=== PATIENT | female | born 1945 | race Caucasian/White ===

== ENCOUNTER → 2019-09-26 | Outpatient (CLI) | payer MEDICARE, OTHER ==
--- NOTE | 2019-09-26 09:32 | Diagnostic Imaging Report ---
Exam: KUB - 2 views Indication: Urinary tract infection Comparison: Renal ultrasound of the same day. Findings: Calcific density overlying the upper pole of the right kidney measures 6 mm and may represent a renal calculus versus intraluminal bowel content. 8 mm calcific density further superiorly appears to lie outside the distribution of the renal silhouette and may be a soft tissue calcification or alternatively a calcified gallstone. Nonobstructive bowel gas pattern. No free air. No acute osseous injury. Impression: 6 mm calcific density overlying the upper pole the right kidney may represent renal calculus versus intraluminal bowel content. Signed by: Analilia Mercer MD on 09/26/2019 9:29 AM
--- NOTE | 2019-09-26 09:50 | Diagnostic Imaging Report ---
EXAM: Renal Ultrasound INDICATION: ^URINARY TRACT INFECTION COMPARISON: None TECHNIQUE: Transverse and longitudinal images of the kidneys and bladder were obtained. FINDINGS: Right Kidney: Length: 9.5 cm Appearance: Normal echogenicity. Collecting system: No hydronephrosis Stones: None Cyst/Mass: None Left Kidney: Length: 9.6 cm Appearance: Normal echogenicity. Collecting system: No hydronephrosis Stones: None Cyst/Mass: None Bladder: No mass or calculi. Bilateral ureteral jets visualized. Prevoid volume estimate of 233 cc. Postvoid volume estimate of 39 cc. IMPRESSION: No renal calculi or hydronephrosis. Signed by: Analilia Mercer MD on 09/26/2019 9:46 AM
== END ==
LOC: US 07:48
PROVIDERS: ATTEND Urology
DX: N39.0 Urinary tract infection, site not specified (principal)
CPT/HCPCS: 74018; 76770; 76857

== ENCOUNTER → 2019-10-11 | Outpatient (CLI) | payer MEDICARE, OTHER ==
--- NOTE | 2019-10-11 09:57 | Diagnostic Imaging Report ---
EXAM: CT Abdomen and Pelvis WITHOUT intravenous contrast INDICATION: Renal calculus COMPARISON: KUB of 09/26/2019, renal ultrasound of 09/26/2019 TECHNIQUE: Abdomen and pelvis were scanned utilizing a multidetector helical scanner from the lung base to the pubic symphysis without administration of IV contrast. Coronal and sagittal reformations were obtained. IV CONTRAST: None ORAL CONTRAST: Water COMPLICATIONS: None RADIATION DOSE: Total DLP: 509 mGy*cm Dose modulation, iterative reconstruction, and/or weight based adjustment of the mA/kV was utilized to reduce the radiation dose to as low as reasonably achievable. FINDINGS: LOWER THORAX: Small sliding hiatal hernia. HEPATOBILIARY: No focal liver lesions. Unremarkable gallbladder. SPLEEN: No splenomegaly. PANCREAS: No focal masses or ductal dilatation. ADRENALS: No adrenal nodules. KIDNEYS/URETERS: 5 mm right upper pole renal calculus. No hydronephrosis or hydroureter. PELVIC ORGANS/BLADDER: Status post hysterectomy. PERITONEUM / RETROPERITONEUM: No free air or fluid. LYMPH NODES: No lymphadenopathy. VESSELS: Scattered atherosclerotic calcifications of the nonaneurysmal abdominal aorta and major branches. GI TRACT: No abnormal bowel thickening. No bowel obstruction. Normal appendix. BONES AND SOFT TISSUES: No acute osseous injury. No suspicious lytic or blastic lesions. IMPRESSION: 5 mm right upper pole nonobstructive renal calculus. No hydronephrosis or hydroureter. Signed by: Aanlilia Mercer MD on 10/11/2019 9:54 AM
== END ==
LOC: CT 08:28
PROVIDERS: ATTEND Urology
DX: N20.0 Calculus of kidney (principal)
CPT/HCPCS: 74176

== ENCOUNTER 2019-11-02 05:42 | Observation (INO) | payer MEDICARE, OTHER ==
[2019-10-28 09:42] LABS: BASOPHILS % 0.4 % (0.0-1.0); EOSINOPHILS # (AUTO) 0.1 (0.0-0.4); EOSINOPHILS % 1.2 % (0.0-6.0); HEMATOCRIT 38.1 % (34.2-44.1); HEMOGLOBIN 12.2 g/dL (12.0-16.0); LYMPHOCYTES # (AUTO) 3.5 (1.0-3.2); MEAN CORPUSCULAR HEMOGLOBIN 27.7 pg (28-32); MEAN CORPUSCULAR VOLUME 86.6 fL (81-99); MONOCYTES # (AUTO) 1.2 (0.2-0.8); MONOCYTES % 10.5 % (4.4-11.3); NEUTROPHILS # (AUTO) 6.4 (2.1-6.9); NEUTROPHILS % 56.4 % (38.7-80.0); PLATELET COUNT 238 x10e3/uL (140-360); RED CELL DISTRIBUTION WIDTH 15.3 % (11.7-14.4)
--- NOTE | 2019-10-28 10:32 | Diagnostic Imaging Report ---
EXAMINATION: CHEST 2 VIEWS INDICATION: Pre-operative COMPARISON: None FINDINGS: LINES/TUBES:None LUNGS:The lungs are well-inflated. No focal consolidation or pulmonary edema. PLEURA:No pleural effusion or pneumothorax. MEDIASTINUM:The cardiomediastinal silhouette appears normal in size and shape. BONES/SOFT TISSUES:No acute osseous injury. ABDOMEN:No free air under the diaphragm. IMPRESSION: No focal pneumonia or pulmonary edema. Signed by: Analilia Mercer MD on 10/28/2019 10:29 AM
[~2019-11-02] VITALS: Ht 154.9 cm; Wt 80.7 kg
[~2019-11-02 05:42] MED LIST: AMLODIPINE BESY10 MG PO; ARIMIDEX1 MG PO; CALTRATE 600 +1 EAC1 PO; CENTRUM SILVER1 EAC4 PO; CLONIDINE HCL0.1 MG PO; LISINOPRIL10 MG PO; ODOR FREE GARL100 MG PO; PREVAGEN PO; SIMVASTATIN20 MG PO; SYNTHROID88 MCG PO; VISION ESSENTIALS PO; VITAMIN D310 MCG PO; [UNRECOGNIZED DRUG - OTHER] PO
[2019-11-02] MEDS ORDERED: GENTAMICIN 80MG/NS 100 ML 200 ML IV ONE (06:51)
[2019-11-02] MEDS ORDERED: CLINDAMYCIN 300MG 50 ML IV ONE (06:51)
[2019-11-02] MEDS ORDERED: PIPER-TAZ 3.375 GM 50 ML ONE (06:51)
[2019-11-02] MEDS ORDERED: SILVER SULFADIAZINE 50GM CREAM ONE (07:46)
[2019-11-02] MEDS ORDERED: BUPIVACAINE 0.25%/EPI 30ML SDV INJ ONE (07:46)
[2019-11-02] MEDS ORDERED: INDIGOTINDISULFONATE SODIUM 8 MG/ML AMP IJ ONE (07:47)
[2019-11-02] MEDS ORDERED: IOPAMIDOL 300MG/ML 50ML INFUS..BTL IV ONE (07:48)
[2019-11-02 08:14] LABS: ANION GAP 12.8 mmol/L (8-16); BLOOD UREA NITROGEN 21 mg/dL (7-26); BUN/CREATININE RATIO 24 (6-25); CALCIUM 9.3 mg/dL (8.4-10.2); CARBON DIOXIDE 19 mmol/L (22-29); CHLORIDE 113 mmol/L (98-107); CREATININE, SERUM 0.86 mg/dL (0.57-1.11); EST GLOMERULAR FILTRATION RATE > 60 ML/MIN (60-); GLUCOSE 94 mg/dL (74-118); POTASSIUM 3.8 mmol/L (3.5-5.1); SODIUM 141 mmol/L (136-145)
[2019-11-02] MEDS ORDERED: BACITRACIN 50,000 UNIT VIAL ONE (08:18)
[2019-11-02] MEDS ORDERED: B&O 60MG R/S 60 MG SUPP PR ONE (08:18)
[2019-11-02] MEDS ORDERED: FENTANYL CITRATE/PF 100MCG/2 ML INJ ONE (10:55)
[2019-11-02] MEDS ORDERED: ONDANSETRON HCL INJ 2MG/ML 2ML 2 MG/ML VIAL ONE ×2 (11:08→14:02)
[2019-11-02] MEDS ORDERED: MEPERIDINE HCL INJ 25 MG/ML VIAL ONE ×2 (11:08→12:00)
[2019-11-02] MEDS ORDERED: DIPHENHYDRAMINE HCL 25 MG CAP PO PRN (11:30)
[2019-11-02] MEDS ORDERED: NALOXONE HCL INJ 0.4 MG/ML AMP IV PRN (11:30)
[2019-11-02] MEDS ORDERED: TRAMADOL HCL 50 MG TAB PO PRN (11:30)
[2019-11-02] MEDS ORDERED: ONDANSETRON HCL INJ 2MG/ML 2ML 2 MG/ML VIAL IV PRN (11:30)
[2019-11-02] MEDS ORDERED: MORPHINE SULFATE 1 MG/ML 30ML PCA IV PRN (11:30)
--- OUTSIDE RECORDS SUMMARY | 2019-11-02 12:19 | XMS REPORT | Summary of Care ---
Author Author [facility] Organization [facility] Address Unknown Phone Unavailable Encounter TERRANCE Emanuel(KEANU) [id number] Date(s): 08/29/15 - 08/29/15 [facility] [address] [place] [address]- Discharge Disposition: Home Attending Physician: Adrian Andre MD Referring Physician: Adrian Andre MD Vital Signs 1 2 3 Most recent to oldest [Reference Range]: 157.48 cm (08/22/15 11:06 AM) Height 97.9 DegF (08/22/15 11:43 AM) Temperature Oral [96.4-99.1 DegF] 133/54 mmHg (08/29/15 4:30 PM) 143/64 mmHg *HI* (08/29/15 3:45 PM) 129/64 mmHg (08/29/15 3:30 PM) Blood Pressure [90-140/60-90 mmHg] 18 BRMIN (08/29/15 4:30 PM) 18 BRMIN (08/29/15 3:45 PM) 11 BRMIN *LOW* (08/29/15 3:30 PM) Respiratory Rate [14-20 BRMIN] 75 bpm (08/22/15 11:43 AM) Peripheral Pulse Rate [60-100 bpm] 85.54 kg (08/22/15 11:06 AM) Weight 34.49 m2 (08/22/15 11:06 AM) Body Mass Index Problem List Condition Effective Dates Status Health Status Informan t Bronchitis(Confirmed Resolved ) Cataracts(Confirmed) Resolved Thyroid Active disorder(Confirmed) Heartburn(Confirmed) Active High Active cholesterol(Confirme d) Hyperlipidemia(Confi Active rmed) Hypertension(Confirm Active ed) High blood Active pressure(Confirmed) Hypothyroidism(Confi Active rmed) Obesity(Confirmed) Active Pneumonia(Confirmed) Resolved SOB (shortness of Active breath) on exertion(Confirmed) Allergies, Adverse Reactions, Alerts Substance Reaction Severity Status codeine VERTIGO Active Vomiting, NOS Levaquin Joint and Muscle Aches Active Medications ANES fentaNYL 25 microgram, Route: IVP, Q5Min, Dosing Weight 85.54, kg, PRN Pain Score 4-6, St art date: 08/29/15 14:47:00 CDT, Duration: 4 doses or times, Stop date: Limited # of times Start Date: 08/29/15 Stop Date: 08/29/15 Status: Discontinued ANES fentaNYL 50 microgram, Route: IVP, Q5Min, Dosing Weight 85.54, kg, PRN Pain Score 7-10, S tart date: 08/29/15 14:47:00 CDT, Duration: 2 doses or times, Stop date: Limited # of times Start Date: 08/29/15 Stop Date: 08/29/15 Status: Discontinued ANES flumazenil 0.2 mg, Route: IVP, PRN, Dosing Weight 85.54, kg, PRN Benzodiazepine Reversal, I nitial dose, Start date: 08/29/15 14:47:00 CDT, Duration: 30 day, Stop date: 04/14 14:46:00 CDT Start Date: 08/29/15 Stop Date: 08/29/15 Status: Discontinued ANES naloxone 0.4 mg, Route: IVP, Q2MIN, Dosing Weight 85.54, kg, PRN Narcotic Reversal, Start date: 08/29/15 14:47:00 CDT, Duration: 8 doses or times, Stop date: Limited # of times Start Date: 08/29/15 Stop Date: 08/29/15 Status: Discontinued ANES ondansetron 4 mg, Route: IVP, ONCE, Dosing Weight 85.54, kg, PRN Nausea & Vomiting, Start date: 08/29/15 14:47:00 CDT Start Date: 08/29/15 Stop Date: 08/29/15 Status: Discontinued ceFAZolin 2 gm, 100 mL, Route: IVPB, Drug form: INJ, ONCE, Dosing Weight 85.455, kg, Start date: 08/22/15 11:32:00 CDT, Stop date: 08/22/15 11:32:00 CDT Notes: Same as: Ancef Start Date: 08/22/15 Stop Date: 08/22/15 Status: Ordered ceFAZolin (ANES) Route: IV, Drug form: INJ, ONCE, Stop date: 08/29/15 14:20:00 CDT Start Date: 08/29/15 Stop Date: 08/29/15 Status: Completed famotidine (ANES) Route: IV, Drug form: INJ, ONCE, Stop date: 08/29/15 14:15:00 CDT Start Date: 08/29/15 Stop Date: 08/29/15 Status: Completed fentaNYL (ANES) Route: IV, Drug form: INJ, ONCE, Stop date: 08/29/15 14:35:00 CDT Start Date: 08/29/15 Stop Date: 08/29/15 Status: Completed Lactated Ringers Injection IV (ANES) (ANES) Route: IV, Total Volume: 1,000, Start date: 08/29/15 13:24:00 CDT, Stop date: 14:24:00 CDT Start Date: 08/29/15 Stop Date: 08/29/15 Status: Completed Lactated Ringers Injection IV 1000 mL 1,000 mL, Rate: 25 ml/hr, Infuse over: 40 hr, Route: IV, Dosing Weight 85.54 kg, Total Volume: 1,000, Start date: 08/29/15 10:31:00 CDT, Duration: 30 day, Stop date: 09/28/15 10:30:00 CDT Start Date: 08/29/15 Stop Date: 08/29/15 Status: Discontinued lidocaine (ANES) Route: IV, Drug form: INJ, ONCE, Stop date: 08/29/15 14:20:00 CDT Start Date: 08/29/15 Stop Date: 08/29/15 Status: Completed midazolam (ANES) Route: IV, Drug form: SOLN, ONCE, Stop date: 08/29/15 14:15:00 CDT Start Date: 08/29/15 Stop Date: 08/29/15 Status: Completed ondansetron (ANES) Route: IV, Drug form: INJ, ONCE, Stop date: 08/29/15 14:20:00 CDT Start Date: 08/29/15 Stop Date: 08/29/15 Status: Completed oxyCODONE 5 mg immediate release 5 mg, Route: PO, Drug form: TAB, ONCE, Dosing Weight 85.54, kg, PRN Pain Score 4 -6, Start date: 08/29/15 15:57:00 CDT, Stop date: 09/28/15 15:56:00 CDT Start Date: 08/29/15 Stop Date: 08/29/15 Status: Completed phenylephrine (ANES) Route: IV, Drug form: INJ, ONCE, Stop date: 08/29/15 14:40:00 CDT Start Date: 08/29/15 Stop Date: 08/29/15 Status: Completed propofol (ANES) Route: IV, Drug form: INJ, ONCE, Stop date: 08/29/15 14:20:00 CDT Start Date: 08/29/15 Stop Date: 08/29/15 Status: Completed tramadol 50 mg oral tablet 50 mg = 1 tab, PO, Q8H, PRN Pain, X 7 day, # 21 tab, 0 Refill(s) Start Date: 08/29/15 Stop Date: 09/05/15 Status: Ordered Results ELECTROLYTES Most recent to 1 oldest [Reference Range]: Sodium Lvl [135-145 143 mEq/L mEq/L] (08/22/15 11:42 AM) Potassium Lvl 3.8 mEq/L [3.5-5.1 mEq/L] (08/22/15 11:42 AM) Chloride Lvl [95-109 106 mEq/L mEq/L] (08/22/15 11:42 AM) CO2 [24-32 mEq/L] 26 mEq/L (08/22/15 11:42 AM) AGAP [10.0-20.0 14.8 mEq/L mEq/L] (08/22/15 11:42 AM) HEMATOLOGY Most recent to 1 oldest [Reference Range]: WBC [3.7-10.4 K/CMM] 9.0 K/CMM (08/22/15 11:42 AM) RBC [4.20-5.40 4.75 M/CMM M/CMM] (08/22/15 11:42 AM) Hgb [12.0-16.0 g/dL] 13.5 g/dL (08/22/15:42 AM) Hct [36.0-48.0 %] 41.3 % (08/22/15:42 AM) MCV [80.0-98.0 fL] 86.9 fL (08/22/15:42 AM) MCH [27.0-31.0 pg] 28.3 pg (08/22/15:42 AM) MCHC [32.0-36.0 32.6 g/dL g/dL] (08/22/15:42 AM) RDW [11.5-14.5 %] 15.3 % *HI* (08/22/1542 AM) Platelet [133-450 235 K/CMM K/CMM] (08/22/15:42 AM) MPV [7.4-10.4 fL] 8.5 fL (08/22/15 11:42 AM) Segs [45.0-75.0 %] 57.1 % (08/22/15 11:42 AM) Lymphocytes 30.1 % [20.0-40.0 %] (08/22/15 11:42 AM) Monocytes [2.0-12.0 10.1 % %] (08/22/15 11:42 AM) Eosinophils [0.0-4.0 1.7 % %] (08/22/15 11:42 AM) Basophils [0.0-1.0 1.0 % %] (08/22/15 11:42 AM) Segs-Bands # 5.2 K/CMM [1.5-8.1 K/CMM] (08/22/15 11:42 AM) Lymphocytes # 2.7 K/CMM [1.0-5.5 K/CMM] (08/22/15 11:42 AM) Monocytes # [0.0-0.8 0.9 K/CMM K/CMM] *HI* (08/22/15 11:42 AM) Eosinophils # 0.1 K/CMM [0.0-0.5 K/CMM] (08/22/15 11:42 AM) Basophils # [0.0-0.2 0.1 K/CMM K/CMM] (08/22/15 11:42 AM) Immunizations No data available for this section Procedures Procedure Date Related Diagnosis Body Site Knee replacement 2014 Hysterectomy Lower jaw operation Lumpectomy of breast Social History Social History Type Response Substance Abuse Use: None. Alcohol Current, Type Wine. Freque ncy: 1-2 times per month. Smoking Status Never smoker; Exposure to T obacco Smoke None; Cigarette Smoking Last 365 Days No; Reg Smoking Cessation Counseli ng No Assessment and Plan No data available for this section
--- OUTSIDE RECORDS SUMMARY | 2019-11-02 12:19 | XMS REPORT | Summary of Care ---
Author Author [facility] Organization [facility] Address Unknown Phone Unavailable Care Team Providers Care [employer] Advisor Name Role Phone Kelly Griffin PCP Encounter [facility] Adelfo(FIN) [id number] Date(s): 09/27/19 - 09/27/19 [facility] [address] [place] [address]- Discharge Disposition: Home or Self Care Attending Physician: Marce Montano DO Referring Physician: Marce Montano DO Vital Signs No data available for this section Problem List Condition Effective Dates Status Health Status Informan t Bronchitis(Confirmed Resolved ) Cataracts(Confirmed) Resolved Thyroid Active disorder(Confirmed) Heartburn(Confirmed) Active High Active cholesterol(Confirme d) Hyperlipidemia(Confi Active rmed) Hypertension(Confirm Active ed) High blood Active pressure(Confirmed) Hypothyroidism(Confi Active rmed) Obesity(Confirmed) Active Pneumonia(Confirmed) Resolved SOB (shortness of Active breath) on exertion(Confirmed) Allergies, Adverse Reactions, Alerts Substance Reaction Severity Status codeine Vomiting, NOS Active VERTIGO Levaquin Joint and Muscle Aches Active Medications No data available for this section Results No data available for this section Immunizations No data available for this section Procedures Procedure Date Related Diagnosis Body Site Status Partial mastectomy right 08/29/15 Completed Knee replacement 2014 Completed Hysterectomy Completed Lower jaw operation Completed Lumpectomy of breast Completed Social History Social History Type Response Alcohol Current, Type Wine. Freque ncy: 1-2 times per month. Substance Abuse Use: None. Smoking Status Never smoker; Exposure to T obacco Smoke None; Cigarette Smoking Last 365 Days No; Reg Smoking Cessation Counseli ng No entered on: 09/06/15 Assessment and Plan No data available for this section
--- OUTSIDE RECORDS SUMMARY | 2019-11-02 12:19 | XMS REPORT | Continuity of Care Document ---
Author Author [facility] t Organization [facility] Address [address] [place] [address] 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 0 Active 12/14/2018 [facility] Diagnosis Active 2018-12-14 00:00:00 2018-12-28 08:36:00 Alo Pierre DIAGNOSTIC MAMMO KELLEY -- US BREAST KELLEY DIAGNOSTIC MAMMO KELLEY -- US BREAST KELLEY Active 04/22/2018 [facility] Diagnosis Ac tive 2018-04-22 00:00:00 2018-06-21 07:09:00 shawn Pierre SCREENING MAMM SCRE ENING MAMM Active 05/28/2017 [facility] Diagnosis Active 2017-05-28 00:00:00 2017-06-19 08:31:00 Alo Pierre DX: M81.0=AGE-RELATED OSTEOPOROSIS WITHO DX: M81.0=AGE- RELATED OSTEOPOROSIS WITHO Active 11/20/2016 [facility] Diagnosis Ac tive 2016-11-20 00:00:00 2016-12-22 08:17:00 M shawn Pierre D05.00 D05. 00 Active 03/27/2016 [facility] Diagnosis Active 2016-03-27 00:00:00 2016-04-07 13:18:00 Alo Pierre M85.9 - DISORDER OF BONE DENSITY AND S M85.9 - DISORDER OF BONE DENSITY AND S Active 09/26/2015 [facility] [place] [facility] Active 2015-09-26 00:01:00 2015-12-21 16:23:00 Alo Pierre UNK UNK Active 08/14/2015 [facility] Diagnosis Active 2015-08-14 00:00:00 2015-08-29 08:27:00 William Pierre 2 AREA MASS 2 AR EA MASS Active 07/23/2015 [facility] Active 2015-07-23 00:00:00 2015-08-01 13:19:00 Alo Pierre ABNORMAL RIGHT MAMMO ABNO RMAL RIGHT MAMMO Active 07/10/2015 [facility] Active 2015-07-10 00:00:00 2015-07-23 07:55:00 Alo Pierre Z12.31 - ENCNTR SCREEN MAMMOGRAM FOR MA Z12.31 - ENCNTR SCREEN MAMMOGRAM FOR MA Active 07/03/2015 [facility] [place] Diagnosis Active 2015-07-03 00:01:00 2015-07-04 09:51:00 Alo Pierre Bronchitis (disorder) Bron chitis (disorder) [facility]olved [facility]29[facility] Resolved 2019-09-29 23:15:05 Alo Pierre Bilateral cataracts (disorder) Bilateral cataracts (disorder) Resolved Problem 09/29/2019 [facility] Problem Resolved 2019-09-29 23:15:05 Breanna Pierre Pneumonia (disorder) Pneu monia (disorder) Resolved Problem 09/29/2019 [facility] Problem Resolved 2019-09-29 23:15:05 Alo Pierre Disease of thyroid gland (disorder) Disease of thyroid gland (disorder) Active Problem 09/29/2019 [facility] Problem Active 2019-09-29 23:15:05 Alo Pierre Heartburn (finding) Hear tburn (finding) Active Problem 09/29/2019 [facility] Problem Active 2019-09-29 23:15:05 Alo Pierre Hypercholesterolemia (disorder) Hypercholesterolemia (disorder) Active Problem 09/29/2019 [facility] Problem Active 2019-09-29 23:15:05 Breanna Pierre Hyperlipidemia (disorder) Hype rlipidemia (disorder) Active [facility]29[facility] Active 2019-09-29 23:15:05 Alo Pierre Hypertensive disorder, systemic arterial (disorder) Hypertensive disorder, systemic arterial (disorder) [facility] 2019-09-29 23:15:05 Alo Pierre Hypothyroidism (disorder) Hypo thyroidism (disorder) [facility]29[facility] Active 2019-09-29 23:15:05 Alo Pierre Obesity (disorder) Obes ity (disorder) [facility] 2019-09-29 23:15:05 Alo Pierre Dyspnea on exertion (finding) Dyspnea on exertion (finding) Active [facility]29[facility] Active 2019-09-29 23:15:05 Breanna Pierre INCONCLUSIVE MAMMOGRAM INCO NCLUSIVE MAMMOGRAM Active [facility] Diagnosis Active 2015-07-23 07:55:00 William Pierre UNSPECIFIED LUMP IN BREAST UNS PECIFIED LUMP IN BREAST Active [facility] Diagnosis Active 2015-08-29 08:27:00 Alo Pierre LOBULAR CARCINOMA IN SITU OF UNSPECIFIED LOBULAR CARCINOMA IN SITU OF UNSPECIFIED Active [facility] Diagnosis Active 2019-09-27 08:17:00 Alo Pierre AGE-RELATED OSTEOPOROSIS W/O CURRENT PAT AGE-RELATED OSTEOPOROSIS W/O CURRENT PAT Active [facility] Diagnosis Active 2018-12-28 08:36:00 Alo Pierre ENCNTR SCREEN MAMMOGRAM FOR MALIGNANT NE ENCNTR SCREEN MAMMOGRAM FOR MALIGNANT NE Active [facility] Diagnosis Active 2017-06-19 08:31:00 Alo Pierre OTHER SPECIFIED DISORDERS OF BREAST OTHER SPECIFIED DISORDERS OF BREAST Active [facility] Diagnosis Active 2019-09-27 08:17:00 Alo Pierre Encounter for screening mammogram for malignant neopla sm of breast Encounter for screening mammogram for malignant neoplasm of breast 06/26/2017 09/25/2017 [facility] Problem 2017-06-26 03:21:55 2017 11:47:47 2017-09-25 11:47:47 Alo Pierre Allergies, Adverse Reactions, Alerts Allergy Name Allergy Type Status Severity Reaction(s) Onset Date Inacti ve Date Treating Clinician Comments Source codeine codeine Active [facility] Levaquin Levaquin Active [facility] [place] Social History Social Habit Start Date Stop Date Quantity Comments Source Social History 2015-08-14 16:05:59 2015-08-14 16:05:59 [facility] Medications Ordered Medication Name Filled Medication Name Start Date Stop Da te Current Medication? Ordering Clinician Indication Dosage Frequency Signature (SIG) Comments Components Source Oxycodone Hydrochloride 5 MG Oral Tablet 2015-08-29 20:57:00 No 5 mg, Route: PO, Drug form: TAB, ONCE, Dosing Weight 85.54, kg, PRN Pain Score 4- 6, Start date: 08/29/15 15:57:00 CDT, Stop date: 09/28/15 15:56:00 CDT [facility] Fentanyl 2015-08-29 19:47:00 No 25 microgram, Route: IVP, Q5Min, Dosing Weight 85.54, kg, PRN Pain Score 4-6, Start date: 08/29/15 14:47:00 CDT, Duration: 4 doses or times, Stop date: Limited # of times [facility] Ondansetron 2015-08-29 19:47:00 No 4 mg, Route: IVP, ONCE, Dosing Weight 85.54, kg, PRN Nausea & Vomiting, Start date: 08/29/15 14:47:00 CDT [facility] Flumazenil 2015-08-29 19:47:00 No 0.2 mg, Route: IVP, PRN, Dosing Weight 85.54, kg, PRN Benzodiazepine Reversal, Initial dose, Start date: 08/29/15 14:47:00 CDT, Duration: 30 day, Stop date: 09/28/15 14:46:00 CDT [facility] Naloxone 2015-08-29 19:47:00 No 0.4 mg, Route: IVP, Q2MIN, Dosing Weight 85.54, kg, PRN Narcotic Reversal, Start date: 08/29/15 14:47:00 CDT, Duration: 8 doses or times, Stop date: Limited # of times [facility] tramadol hydrochloride 50 MG Oral Tablet 2015-08-29 19:42:00 Yes 50 mg = 1 tab, PO, Q8H, PRN Pain, X 7 day, # 21 tab, 0 Refill(s) [facility] phenylephrine ([facility]) 2015-08-29 19:40:00 No Route: IV, Drug form: INJ, ONCE, Stop date: 08/29/15 14:40:00 CDT [facility] fentaNYL ([facility]) 2015-08-29 19:35:00 No Route: IV, Drug form: INJ, ONCE, Stop date: 08/29/15 14:35:00 CDT [facility] propofol ([facility]) 2015-08-29 19:20:00 No Route: IV, Drug form: INJ, ONCE, Stop date: 08/29/15 14:20:00 CDT [facility] ondansetron ([facility]) 2015-08-29 19:20:00 No Route: IV, Drug form: INJ, ONCE, Stop date: 08/29/15 14:20:00 CDT [facility] ceFAZolin ([facility]) 2015-08-29 19:20:00 No Route: IV, Drug form: INJ, ONCE, Stop date: 08/29/15 14:20:00 CDT [facility] lidocaine ([facility]) 2015-08-29 19:20:00 No Route: IV, Drug form: INJ, ONCE, Stop date: 08/29/15 14:20:00 CDT [facility] famotidine ([facility]) 2015-08-29 19:15:00 No Route: IV, Drug form: INJ, ONCE, Stop date: 08/29/15 14:15:00 CDT [facility] midazolam ([facility]) 2015-08-29 19:15:00 No Route: IV, Drug form: SOLN, ONCE, Stop date: 08/29/15 14:15:00 CDT [facility] Lactated Ringers Injection IV ([facility]) ([facility]) 2015-08-29 18:24:00 No Route: IV, Total Volume: 1,000, Start date: 08/29/15 13:24:00 CDT, Stop date: 08/29/15 14:24:00 CDT [facility] Calcium Chloride 0.0014 MEQ/ML / Potassi um Chloride 0.004 MEQ/ML / Sodium Chloride 0.103 MEQ/ML / Sodium Lactate 0.028 MEQ/ML Injectable Solution 2015-08-29 15:31:00 No 1,000 mL, Rate: 25 ml/hr, Infuse over: 40 hr, Route: IV, Dosing Weight 85.54 kg, Total Volume: 1,000, Start date: 08/29/15 10:31:00 CDT, Duration: 30 day, Stop date: 09/28/15 10:30:00 CDT [facility] Cefazolin 2015-08-22 16:32:00 Yes Notes: Marty bey as: Ancef [facility] Vital Signs Vital Name Observation Time Observation Value Comments Source Systolic (mm Hg) 2015-08-29 21:30:00 [facility] [place] Diastolic (mm Hg) 2015-08-29 21:30:00 [facility] [place] Respitory Rate 2015-08-29 21:30:00 [facility] [place] Systolic (mm Hg) 2015-08-29 20:45:00 [facility] [place] Diastolic (mm Hg) 2015-08-29 20:45:00 [facility] [place] Respitory Rate 2015-08-29 20:45:00 [facility] [place] Systolic (mm Hg) 2015-08-29 20:30:00 [facility] [place] Diastolic (mm Hg) 2015-08-29 20:30:00 [facility] [place] Respitory Rate 2015-08-29 20:30:00 [facility] al [place] Heart Rate 2015-08-22 16:43:00 [facility] Temperature Oral (F) 2015-08-22 16:43:00 97.9 F [facility] Height 2015-08-22 16:06:00 157.48 cm [facility] BMI Calculated 2015-08-22 16:06:00 [facility] al [place] Weight 2015-08-22 16:06:00 [facility] Procedures Procedure Date / Time Performed Performing Clinician Narcisa bey Partial mastectomy right 2015-08-29 05:00:00 [facility] [place] Knee replacement 2014-03-30 00:00:00 [facility] Hysterectomy [facility] Lower jaw operation [facility] Lumpectomy of breast [facility] Encounters Start Date/Time End Date/Time Encounter Type Admission Type [facility] Care Department Encounter ID Source 2019-09-27 07:59:00 2019-09-27 23:59:00 Outpatient HashMarce Erwin [facility] [id number] 2019-09-27 07:59:00 2019-09-27 07:59:00 Outpatient [facility] 2018-12-28 07:23:00 2018-12-28 23:59:00 Outpatient HashMarce Erwin MHSE [facility]SE [id number] 2018-12-28 07:23:00 2018-12-28 07:23:00 Outpatient [facility] 2018-06-21 06:57:00 2018-06-21 23:59:00 Outpatient Marce Curtis MHSE MHSE [id number] 2017-06-19 08:30:00 2017-06-19 23:59:00 Outpatient Marce Curtis MH[facility] [id number] 2016-12-22 08:17:00 2016-12-22 23:59:00 Outpatient Marce Curtis [facility] [id number] 2016-04-07 13:17:00 2016-04-07 23:59:00 Outpatient Marce Curtis [facility] [id number] 2015-11-20 10:55:00 2015-11-20 23:59:00 Outpatient Marce Andrew [id number] 2015-08-29 08:27:00 2015-08-29 16:40:00 Outpatient Adrian Andre [facility]SE MHSE [id number] 2015-08-01 12:39:00 2015-08-01 23:59:00 Outpatient Jarret Tuttle MH[facility] [id number] 2015-07-23 07:45:00 2015-07-23 23:59:00 Outpatient Jarret Tuttle MH[facility] [id number] 2015-07-04 09:41:00 2015-07-04 23:59:00 Outpatient Jarret Tuttle [id number] 2013-11-14 07:27:00 2013-11-14 23:59:00 Outpatient Jarret Tuttle [id number] Results Test Description Test Time Test Comments Results Result Comments Source CHEST 2 VIEWS 2019-10-28 10:29:00 [place] [address] Patient Name: JOSELITO BARRETO MR #: [id number] : 1945 Age/Sex: 74/F Req #: [id number] Adm Physician: Ordered by: LANCE WALLACE MD Report #: [id number] Location: OR Room/Bed: Procedure: [id number] DX/CHEST 2 VIEWS Exam Date: Exam Time: REPORT STATUS: Signed EXAMINATION: CHEST 2 VIEWS INDICATION: Pre- operative COMPARISON: None FINDINGS: LINES/TUBES:None LUNGS:The lungs are well-inflated. No focal consolidation or pulmonary edema. PLEURA:No pleural effusion or pneumothorax. MEDIASTINUM:The cardiome diastinal silhouette appears normal in size and shape. BONES/SOFT TISSUES:No acute osseous injury. ABDOMEN:No free air under the diaphragm. IMPRESSION: No focal pneumonia or pulmonary edema. Signed by: Adore Mercer MD on 10/28/2019 10:29 AM Dictated By: ADORE MERCER MD 1029 Transcribed By: RICHARDSON on 10/28/19 1029 COPY TO: LANCE WALLACE MD CT ABDOMEN/PELVIS WO 2019-10-11 09:47:00 [address] [place], [place] [address] Patient Name: JOSELITO BARRETO MR #: [id number] : 1945 [facility]: 74[id number] Req #: [id number] [facility] Physician: Ordered by: LANCE WALLACE MD Report #: [id number] Location: CT Room/Bed: Procedure: [id number] CT/CT ABDOMEN/PELVIS WO Exam Date: 10/11/19 Exam Time: 0900 REPORT STATUS: Signed EXAM: CT Abdomen and Pelvis WITHOUT intravenous contrast INDICATION: Renal calculus COMPARISON: KUB of 09/26/2019, renal ultrasound of 09/26/2019 TECHNIQUE: Abdomen and pelvis were scanned utilizing a multidetector helical scanner from the lung base to the pubic symphysis without administration of IV contrast. Coronal and sagittal reformations were obtained. IV CONTRAST: None ORAL CONTRAST: Water COMPLICATIONS: None RADIATION DOSE: Total DLP: 509 mGy*cm Dose modulation, iterative reconstruction, and/or weight based adjustment of the mA/kV was utilized to reduce the radiation dose to as low as reasonably achievable. FINDINGS: LOWER THORAX: Small sliding hiatal hernia. HEPATOBILIARY: No focal liver lesions. Unremarkable gallbladder. SPLEEN: No splenomegaly. PANCREAS: No focal masses or ductal dilatation. ADRENALS: No adrenal nodules. KIDNEYS/URETERS: 5 mm right upper pole renal calculus. No hydronephrosis or hydroureter. PELVIC ORGANS/BLADDER: Status post hysterectomy. PERITONEUM / RETROPERITONEUM: No free air or fluid. LYMPH NODES: No lymphadenopathy. VESSELS: Scattered atherosclerotic calcifications of the nonaneurysmal abdominal aorta and major branches. GI TRACT: No abnormal bowel thickening. No bowel obstruction. Normal appendix. BONES AND SOFT TISSUES: No acute osseous injury. No suspicious lytic or blastic lesions. IMPRESSION: 5 mm right upper pole nonobstructive renal calculus. No hydronephrosis or hydroureter. Signed by: Adore Mercer MD on 10/11/2019 9:54 AM Dictated By: ADORE MERCER MD 3 Transcribed By: RICHARDSON on 10/11/19953 COPY TO: LANCE WALLACE MD RENAL RETROPERITONEAL COMP 2019-09-26 09:45:00 [place] [address] Patient Name: JOSELITO BARRETO MR #: [id number] : 1945 Age/Sex: 74/F Req #: [id number] Adm Physician: Ordered by: LANCE WALLACE MD Report #: [id number] Location: Room/Bed: Procedure: [id number] US/US RENAL RETROPERITONEAL COMP Exam Date: 09/26/19 Exam Time: 0810 REPORT STATUS: Signed EXAM: Renal Ultrasound INDICATION: URINARY TRACT INFECTION COMPARISON: None TECHNIQUE: Transverse and longitudinal images of the kidneys and bladder were obtained. FINDINGS: Right Kidney: Length: 9.5 cm Appearance: Normal echogenicity. Collecting system: No hydronephrosis Stones: None Cyst/Mass: None Left Kidney: Length: 9.6 cm Appearance: Normal echogenicity. Collecting system: No hydronephrosis Stones: None Cyst/Mass: None Bladder: No mass or calculi. Bilateral ureteral jets visualized. Prevoid volume estimate of 233 cc. Postvoid volume estimate of 39 cc. IMPRESSION: No renal calculi or hydronephrosis. Signed by: Adore Mercer MD on 09/26/2019 9:46 AM Dictated By: ADORE MERCER MD 5 Transcribed By: MARY JO Riddle on 09/26/19945 COPY TO: LANCE WALLACE MD US PELVIC (NON OB) MORALES OR F/U 2019-09-26 09:45:00 [place] [address] Patient Name: JOSELITO BARRETO MR #: [id number] : 1945 Age/Sex: 74/F Req #: [id number] Adm Physician: Ordered by: LANCE WALLACE MD Report #: [id number] Location: US Room/Bed: Procedure: [id number] US/US PELVIC (NON OB) MORALES OR F/U Exam Date: 09/26/19 Exam Time: 0810 REPORT STATUS: Signed EXAM: Renal Ultrasound INDICATION: URINARY TRACT INFECTION COMPARISON: None TECHNIQUE: Transverse and longitudinal images of the kidneys and bladder were obtained. FINDINGS: Right Kidney: Length: 9.5 cm Appearance: Normal echogenicity. Collecting system: No hydronephrosis Stones: None Cyst/Mass: None Left Kidney: Length: 9.6 cm Appearance: Normal echogenicity. Collecting system: No hydronephrosis Stones: None Cyst/Mass: None Bladder: No mass or calculi. Bilateral ureteral jets visualized. Prevoid volume estimate of 233 cc. Postvoid volume estimate of 39 cc. IMPRESSION: No renal calculi or hydronephrosis. Signed by: Adore Mercer MD on 09/26/2019 9:46 AM Dictated By: ADORE MERCER MD 5 Transcribed By: MARY JO Riddle on 09/26/19945 COPY TO: LANCE WALLACE MD ABDOMEN-1VIEW (KUB) 2019-09-26 09:27:00 [place] [address] Patient Name: JOSELITO BARRETO MR #: [id number] : 1945 Age/Sex: 74/F Req #: [id number] Adm Physician: Ordered by: LANCE WALLACE MD Report #: [id number] Location: US Room/Bed: Procedure: [id number] DX/ABDOMEN-1VIEW (KUB) Exam Date: 09/26/19 Exam Time: 0845 REPORT STATUS: Signed Exam: KUB - 2 views Indication: Urinary tract infection Comparison: Renal ultrasound of the same day. Findings: Calcific density overlying the upper pole of the right kidney measures 6 mm and may represent a renal calculus versus intraluminal bowel c ontent. 8 mm calcific density further superiorly appears to lie outside the distribution of the renal silhouette and may be a soft tissue calcification or alternatively a calcified gallstone. Nonobstructive bowel gas pattern. No free air. No acute osseous injury. Impression: 6 mm calcific density overlying the upper pole the right kidney may represent renal calculus versus intraluminal bowel content. Signed by: Adore Mercer MD on 09/26/2019 9:29 AM Dictated By: ADORE MERCER MD 8 Transcribed By: RICHARDSON on 09/26/19928 COPY TO: LANCE WALLACE MD ELECTROLYTES 2015-08-22 16:42:00 14.8 Mem [facility] [place] ELECTROLYTES 2015-08-22 16:42:00 26 Mem [facility] [place] ELECTROLYTES 2015-08-22 16:42:00 106 Mem [facility] [place] ELECTROLYTES 2015-08-22 16:42:00 3.8 Mem [facility] [place] ELECTROLYTES 2015-08-22 16:42:00 143 Mem orial [place] HEMATOLOGY 2015-08-22 16:42:00 15.3 Memor ial [place] HEMATOLOGY 2015-08-22 16:42:00 235 Memor ial [place] HEMATOLOGY 2015-08-22 16:42:00 8.5 Memor ial [place] HEMATOLOGY 2015-08-22 16:42:00 Test Item MCH (test code = MCH) 28.3 pg 27.0-31.0 [facility] FvebmvzKKHIHQINOH4213-06-48 16:42:0032.6[facility] 2015-08-22 16:42:004.75[facility] JypuibpWUPZTSEOQX6209-77-06 16:42:0086.9[facility] GfdimgoFFYXFGIHVF7628-81-33 16:42:0013.5[facility] VlvjmmjOAQHYAFSEI3292-18-79 16:42:009.0[facility] ZbsqszxCHFVAVOQBF6320-50-62 16:42:0041.3[facility] [place] HSXORMSXNS4709-65-26 16:42:001.7[facility] JzxbeduDGNBWVUUBZ7907-11-07 16:42:001.0 [facility] DdzyouxHWFOYMOAOE6844-71-00 16:42:005.2[facility] 2015-08-22 16:42:002.7[facility] UjpdhweMKPJYHNZMS0621-05-06 16:42:000.1[facility] SsgtkfyROYNHCPBIS0963-99-41 16:42:000.1[facility] UjhotssHJRTODSRDY4415-98-61 16:42:000.9[facility] MoaegseBMUFGIIECM5805-82-14 16:42:0057.1[facility] [place] WVQZHJKZQJ5296-01-25 16:42:0030.1[facility] BtvsbduXDYQVZQBNY3076-03-71 16:42:00 10.1[facility]
--- OUTSIDE RECORDS SUMMARY | 2019-11-02 12:19 | XMS REPORT | Summary of Care ---
Author Author [facility] Organization [facility] Address Unknown Phone Unavailable Encounter TERRANCE Emanuel(KEANU) [id number] Date(s): 04/07/16 - 04/07/16 [facility] [address] [place] [address]- [phone] Discharge Disposition: Home or Self Care Attending [...] Procedures Procedure Date Related Diagnosis Body Site Partial mastectomy right 08/29/15 Knee replacement 2015 Hysterectomy Lower jaw operation Lumpectomy of breast [...]
--- OUTSIDE RECORDS SUMMARY | 2019-11-02 12:19 | XMS REPORT | Continuity of Care Document ---
Author Author Alo Towi Kenney, PAULA Mcrae [employer] Address Unknown Phone Unavailable Care Team Providers Care Middleware Engineer Name Role Phone [employer] Unavailable Un available Problems Problem Status Onset Date Classification Date Reported Comments Source DX: D05.00=LOBULAR CARCINOMA IN SITU OF Active 09/08/2019 [facility] M81.0 Active 12/14/2018 [facility] DIAGNOSTIC MAMMO DESHAUN -- US BREAST DESHAUN Active 04/22/2018 [facility] Encounter for screening mammogram for ma lignant neoplasm of breast 06/26/2017 09/25/2017 [facility] SCREENING MAMM Active 05/28/2017 [facility] DX: M81.0=AGE-RELATED OSTEOPOROSIS WITHO Active 11/20/2016 [facility] D05.00 Active 03/27/2016 [facility] M85.9 - DISORDER OF BONE DENSITY AND S Active 09/26/2015 [facility] UNK Active 0 08/14/2015 [facility] 2 AREA MASS Active 07/23/2015 [facility] ABNORMAL RIGHT MAMMO Active 07/10/2015 [facility] Z12.31 - ENCNTR SCREEN MAMMOGRAM FOR MA Active 07/03/2015 KATI Wells Bronchitis (disorder) [facility]acts (disorder) [facility] Disease of thyroid gland (disorder) Active [facility] Heartburn (finding) Active Problem [facility]29[facility] Hypercholesterolemia (disorder) [facility] Hyperlipidemia (disorder) Acti ve Problem [facility] Hypertensive disorder, systemic arterial (disorder) [facility] (disorder) Acti ve Problem [facility] Obesity (disorder) Active Problem 09/29/2019 [facility]I Wells,[facility] Pneumonia (disorder) Resolved Problem 09/29/2019 [facility]ATI Wells,[facility] Dyspnea on exertion (finding) Active Problem 04/2019 KATI Wells,[facility] INCONCLUSIVE MAMMOGRAM Active [facility] UNSPECIFIED LUMP IN BREAST Act janeth [facility] LOBULAR CARCINOMA IN SITU OF UNSPECIFIED Active [facility] AGE-RELATED OSTEOPOROSIS W/O CURRENT PAT Active [facility] ENCNTR SCREEN MAMMOGRAM FOR MALIGNANT NE Active [facility] OTHER SPECIFIED DISORDERS OF BREAST Active [facility] Medications Medication Details Route Status Patient Instructions Ordering Provider Order Date Source Oxycodone Hydrochloride 5 MG Oral Tablet 5 mg, Route: PO, Drug form: TAB, ONCE, Dosing Weight 85.54, kg, PRN Pain Score 4-6, Start date: 08/29/15 15:57:00 CDT, Stop date: 09/28/15 15:56:00 CDT Inactive 08/29/2015 [facility] Fentanyl 25 microgram, Route: IVP, Q5Min, Dosing Weight 85.54, kg, PRN Pain Score 4-6, Start date: 08/29/15 14:47:00 CDT, Duration: 4 doses or times, Stop date: Limited # of times Inactive 08/29/2015 [facility] Ondansetron 4 mg, Route: IVP, ONCE, Dosing Weight 85.54, kg, PRN Nausea & Vomiting, Start date: 08/29/15 14:47:00 CDT Inactive 08/29/2015 [facility] Flumazenil 0.2 mg, Route: IVP, PRN, Dosing Weight 85.54, kg, PRN Benzodiazepine Reversal, Initial dose, Start date: 08/29/15 14:47:00 CDT, Duration: 30 day, Stop date: 09/28/15 14:46:00 CDT Inactive 08/29/2015 [facility] Naloxone 0.4 mg, Route: IVP, Q 2MIN, Dosing Weight 85.54, kg, PRN Narcotic Reversal, Start date: 08/29/15 14:47:00 CDT, Duration: 8 doses or times, Stop date: Limited # of times Inactive 08/29/2015 [facility] tramadol hydrochloride 50 MG Oral Tablet 50 mg = 1 tab, PO, Q8H, PRN Pain, X 7 day, # 21 tab, 0 Refill(s) Active 08/29/2015 [facility] phenylephrine (ANES) Route: IV , Drug form: INJ, ONCE, Stop date: 08/29/15 14:40:00 CDT Inactive 08/29/2015 [facility] fentaNYL (ANES) Route: IV, Suman g form: INJ, ONCE, Stop date: 08/29/15 14:35:00 CDT Inactive 08/29/2015 [facility] propofol (ANES) Route: IV, Suman g form: INJ, ONCE, Stop date: 08/29/15 14:20:00 CDT Inactive 08/29/2015 [facility] ondansetron (ANES) Route: IV, Drug form: INJ, ONCE, Stop date: 08/29/15 14:20:00 CDT Inactive 08/29/2015 [facility] ceFAZolin (ANES) Route: IV, Dr ug form: INJ, ONCE, Stop date: 08/29/15 14:20:00 CDT Inactive 08/29/2015 [facility] lidocaine (ANES) Route: IV, Dr ug form: INJ, ONCE, Stop date: 08/29/15 14:20:00 CDT Inactive 08/29/2015 [facility] famotidine (ANES) Route: IV, D rug form: INJ, ONCE, Stop date: 08/29/15 14:15:00 CDT Inactive 08/29/2015 [facility] midazolam (ANES) Route: IV, Dr ug form: SOLN, ONCE, Stop date: 08/29/15 14:15:00 CDT Inactive 08/29/2015 [facility] Lactated Ringers Injection IV (ANES) (ANES) Route: IV, Total Volume: 1,000, Start date: 08/29/15 13:24:00 CDT, Stop date: 08/29/15 14:24:00 CDT Inactive 08/29/2015 [facility] Calcium Chloride 0.0014 MEQ/ML / Potassi um Chloride 0.004 MEQ/ML / Sodium Chloride 0.103 MEQ/ML / Sodium Lactate 0.028 MEQ/ML Injectable Solution 1,000 mL, Rate: 25 ml/hr, Infuse over: 4 0 hr, Route: IV, Dosing Weight 85.54 kg, Total Volume: 1,000, Start date: 08/29/15 10:31:00 CDT, Duration: 30 day, Stop date: 09/28/15 10:30:00 CDT Inactive 08/29/2015 [facility] Cefazolin Notes: Same as: Ancef Inactive 08/22/2015 [facility] Allergies, Adverse Reactions, Alerts Substance Category Reaction Severity Reaction type Status Date Reported Comments Source codeine Assertion Vomiting, NOS, VERTIGO Drug allergy Active [facility] Levaquin Assertion Joint and Muscle Aches Drug allergy Active [facility] Immunizations No Data Provided for This Section Results Order Name Results Value Reference Range Date Interpretation Comments Source ELECTROLYTES AGAP 14.8 10.0 - 20.0 08/22/2015 [facility] ELECTROLYTES CO2 26 24 - 32 08/22/2015 [facility] ELECTROLYTES Chloride Lvl 106 95 - 109 08/22/2015 [facility] ELECTROLYTES Potassium Lvl 3.8 3.5 - 5.1 08/22/2015 [facility] ELECTROLYTES Sodium Lvl 143 135 - 145 08/22/2015 [facility] HEMATOLOGY RDW 15.3 11.5 - 14.5 08/22/2015 [facility] HEMATOLOGY Platelet 235 133 - 450 08/22/2015 [facility] HEMATOLOGY MPV 8.5 7.4 - 10.4 08/22/2015 [facility] MCH 28.3 27.0 - 31.0 08/22/2015 [facility] MCHC 32.6 32.0 - 36.0 08/22/2015 [facility] HEMATOLOGY RBC 4.75 4.20 - 5.40 08/22/2015 [facility] HEMATOLOGY MCV 86.9 80.0 - 98.0 08/22/2015 [facility] Hgb 13.5 12.0 - 16.0 08/22/2015 [facility] HEMATOLOGY WBC 9.0 3.7 - 10.4 08/22/2015 [facility] HEMATOLOGY Hct 41.3 36.0 - 48.0 08/22/2015 [facility] HEMATOLOGY Eosinophils 1.7 0.0 - 4.0 08/22/2015 [facility] HEMATOLOGY Basophils 1.0 0.0 - 1.0 08/22/2015 [facility] HEMATOLOGY Segs-Bands # 5.2 1.5 - 8.1 08/22/2015 [facility] HEMATOLOGY Lymphocytes # 2.7 1.0 - 5.5 08/22/2015 [facility] HEMATOLOGY Basophils # 0.1 0.0 - 0.2 08/22/2015 [facility] HEMATOLOGY Eosinophils # 0.1 0.0 - 0.5 08/22/2015 [facility] HEMATOLOGY Monocytes # 0.9 0.0 - 0.8 08/22/2015 [facility] HEMATOLOGY Segs 57.1 45.0 - 75.0 08/22/2015 [facility] HEMATOLOGY Lymphocytes 30.1 20.0 - 40.0 08/22/2015 [facility] HEMATOLOGY Monocytes 10.1 2.0 - 12.0 08/22/2015 [facility] Pathology Reports No Data Provided for This Section Diagnostic Reports Report Value Date Source Breast Mammo Diag DESHAUN incl CAD MA BILATERAL DIGITAL DIAGNOSTIC MAMMOGRAM WITH CAD: 09/27/2019 CLINICAL: Follow-up. 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 Current study was evaluated with a Computer Aided Detection (CAD) system. COMPARISON:Comparison is made to exams dated: 06/21/2018 mammogram, 06/19/2017 mammogram, 04/07/2016 mammogram, 08/29/2015 mammogram, 07/23/2015 mammogram - [facility], and 07/04/2015 mammogram - [facility]. TECHNIQUE: Mammographic views were obtained using digital acquisition. [employer] Version 1.3 was utilized for computer aided detection. FINDINGS: There are scattered fibroglandular densities in both breasts. There are benign calcifications in both breasts. There also are post operative findings in the right breast. No significant masses, calcifications, or other findings are seen in either breast. There has been no significant interval change. Breast ultrasound was offered to the patient but was declined. IMPRESSION: BENIGN RECOMMENDATION:There is no mammographic evidence of malignancy. A 1 year screening mammogram is recommended.(09/27/2020) The results were reviewed with the patient. This exam was interpreted at [id number] for [facility]. Savanna batistat/:09/27/2019 09:19:49 School Business Manager(s): Aleja Albarado, [facility] letter sent: BI-RADS 1/2 Mammogram BI-RADS: 2 Benign 09/27/2019 [facility] Bone Density Scan Study: Bone Density Scan dated 12/28/2018. Clinical Indication: - M81.0 Age-related osteoporosis without current pathological fracture; Images of the axial lumbar spine and left hip have been performed using [employer] scanner. COMPARISON: 12/22/2016 FINDINGS: The left hip bone mineral density is 106% of the peak reference bone mass with a T-score of 0.5. Left hip BMD is 1.002 g/cm2. Left Femoral neck BMD is 0.773 g/cm2 and T-score of -0.7. There is a 9.2% increased left total hip bone mineral density change from previous. The axial lumbar bone mineral density is 112% of the peak reference bone mass with a T-score 1.2. Axial lumbar average BMD is 1.176 g/cm2. There is a 22.1% increased bone mineral density change from previous. IMPRESSION: 1. Normal bone density of the left femor al neck. 2. Normal bone density of the total left hip. 3. Normal bone density of the lumbar spi ne. 4. Comparison to prior study as above. The World Health Organization has established that OSTEOPOROSIS occurs at -2.5 or more standard deviations (SD) below peak bone mass (T-score on the Hologic report). OSTEOPENIA (low bone mass) occurs at greater than -1.0 standard deviations to -2.5 standard deviations below peak bone mass. SL: [id number] 12/28/2018 [facility] Breast Mammo Diag DESHAUN incl CAD MA BILATERAL DIGITAL DIAGNOSTIC MAMMOGRAM WITH CAD: 06/21/2018 CLINICAL: Annual, high risk patient with h/o prior ALH and LCIS on previous biopsies. Current study was evaluated with a Computer Aided Detection (CAD) system. COMPARISON:Comparison is made to exams dated: 06/19/2017 mammogram, 04/07/2016 mammogram, 08/29/2015 mammogram, 07/23/2015 mammogram - [facility], 07/04/2015 mammogram, and 11/14/2013 mammogram - [facility]. TECHNIQUE: Mammographic views were obtained using digital acquisition. [employer] Version 1.3 was utilized for computer aided detection. FINDINGS: There are scattered fibroglandular densities in both breasts. There are benign calcifications in both breasts. There also are post operative findings in the right breast. No significant masses, calcifications, or other findings are seen in either breast. There has been no significant interval change. Breast ultrasound was offered to the patient but was declined. IMPRESSION: BENIGN There is no mammographic evidence of malignancy. A follow-up bilateral diagnostic mammogram and possible ultrasound in 12 months is recommended.(06/21/2019) The results were reviewed with the patient. This exam was interpreted at [id number] for [facility]. [place]anna batistat/:06/21/2018 08:15:17 School Business Manager(s): Ivon Hess [facility] letter sent: BI-RADS 1/2 Mammogram BI-RADS: 2 Benign 06/21/2018 [facility] Breast Mammo Scrn DESHAUN w sophia incl CAD MA BILATERAL DIGITAL SCREENING MAMMOGRAM 3D/2D WITH CAD: 06/19/2017 CLINICAL: /Routine. Current study was evaluated with a Computer Aided Detection (CAD) system. COMPARISON:Comparison is made to exams dated: 04/07/2016 mammogram, 08/29/2015 mammogram, 07/23/2015 mammogram - [facility], 07/04/2015 mammogram, 11/14/2013 mammogram, and 11/01/2012 mammogram - [facility]. TECHNIQUE: Digital Breast Tomosynthesis was performed and utilized for Interpretation. [employer] Version 1.3 was utilized for computer aided detection. FINDINGS: There are scattered fibroglandular densities in both breasts. There are benign calcifications in both breasts. There also are post operative findings in the right breast. No significant masses, calcifications, or other findings are seen in either breast. There has been no significant interval change. IMPRESSION: BENIGN RECOMMENDATION:There is no mammographic evidence of malignancy. A 1 year screening mammogram is recommended.(06/20/2018) This exam was interpreted at [id number] for [facility]. Savanna evans/penrad:06/19/2017 09:20:24 School Business Manager(s): Vee Loyd [facility] letter sent: BI-RADS 1/2 Mammogram BI-RADS: 2 Benign 06/19/2017 [facility] Bone Density Scan Patient Name : PAULA BARRETO : 1945; Age: 71 years y/o Female MR: [id number] Study: Bone Density Scan 12/22/2016 8:26 AM CDT Clinical Indication: - osteoporosis. COMPARISON: None FINDINGS: The axial lumbar bone mineral density is 92% of the expected age matched bone mass with a T-score -0.8. Axial lumbar average BMD is 0.96 g/cm2. The left femoral neck bone mineral density is 78% of the expected age matched bone mass with a T-score of -1.7. Left femoral neck BMD is 0.67 g/cm2. The total femoral BMD is 0.92 g/cm2. IMPRESSION: 1. Normal bone mineral density of the maranda mbar spine. 2. Osteopenia of the left femoral neck. The World Health Organization has established that OSTEOPOROSIS occurs at -2.5 or more standard deviations (SD) below peak bone mass. OSTEOPENIA (low bone mass) occurs at -1.0 standard deviations to -2.5 standard deviations below peak bone mass. SL: RIVERA 12/22/2016 [facility] Breast Complete Uni US - BREAS T COMPLETE UNI US/R ULTRASOUND OF RIGHT BREAST AND RIGHT AXILLA: 04/07/2016 CLINICAL: Right breast excisional biopsy revealing 2 sites ADH abnormal mammogram, mammographic nodule/density. Comparison is made to exams dated: 04/07/2016 mammogram, 08/29/2015 mammogram, 08/29/2015 localization, 08/01/2015 ultrasound biopsy, 07/23/2015 ultrasound and 07/23/2015 mammogram - [facility]. Color flow and real-time ultrasound of the right breast and axilla were performed. Morris scale images of the real-time examination were reviewed. There is a stable small benign cyst right breast at 8 o'clock that correlates with ultrasound. There also is a stable small benign calcification right breast at 3 o'clock that correlates with mammography and ultrasound. Additionally there are post operative changes right breast at 10 o'clock that correlate with surgical site. Prior masses right breast at 10 and 11 o'clock have been removed. No abnormalities were seen sonographically in the right axilla. IMPRESSION: BENIGN There is no sonographic evidence of malignancy. Return to annual mammogram screening schedule is recommended. The results were reviewed with the patient. Savanna evans/:04/07/2016 14:35:18 School Business Manager: [place], [facility] This exam was dictated and interpreted by [id number] for [facility]. letter sent: Normal exam Ultrasound BI-RADS: 2 Benign 04/07/2016 [facility] Digital Mammo DX Uni MA - DIGI MERE MAMMO DX UNI MA/R UNILATERAL RIGHT DIGITAL DIAGNOSTIC MAMMOGRAM WITH CAD: 04/07/2016 CLINICAL: 6 Month Follow Up from excisional biopsy - 2 site right breast ALH. Current study was evaluated with a Computer Aided Detection (CAD) system. Comparison is made to exams dated: 08/29/2015 mammogram, 07/23/2015 mammogram - [facility], 07/04/2015 mammogram, 11/14/2013 mammogram, 11/01/2012 mammogram - [facility] and 08/30/2015 specimen - [facility]. There are scattered fibroglandular densities in the right breast. There are benign calcifications in the right breast. There also are post operative findings in the right breast. No significant masses, calcifications, or other findings are seen in the breast. IMPRESSION: INCOMPLETE: NEEDS ADDITIONAL IMAGING EVALUATION No definite mammographic evidence of malignancy or significant interval change. Ultrasound evaluation is pending. The results were reviewed with the patient. SUMMARY: Ultrasound will be performed at this time; please see dedicated separate report. Savanna evans/miguelangel:04/07/2016 14:30:38 School Business Manager: Ivon Hess, [facility] This exam was dictated and interpreted by [id number] for [facility]. Mammogram BI-RADS: 0 Indeterminate 04/07/2016 [facility] Bone Density [employer] MA - Bone Density [employer] MA BONE DENSITY EVALUATION: 11/20/2015 CLINICAL DATA: M85.9- Osteopenia. RISK FACTORS: race. FINDINGS: Bone density evaluation was performed 11/20/2015 on the AP L1-L4 region of spine using a Hologic unit. The BMD average for the exam is 0.984 g/cm2. The T-score is -0.60 and the Z-score is 1.60. This matches the World Health Organization's criteria for normal bone density and places the patient within normal limits of fracture risk. An additional bone density evaluation was performed 11/20/2015 on the right femur neck using a Hologic unit. The BMD average for the exam is 0.728 g/cm2. The T-score is -1.10 and the Z-score is 0.80. This matches the World Health Organization's criteria for osteopenia and places the patient at a medium risk for fracture. An additional bone density evaluation was performed 11/20/2015 on the right total femur area using a Hologic unit. The BMD average for the exam is 0.852 g/cm2. The T-score is -0.70 and the Z-score is 0.90. This matches the World Health Organization's criteria for normal bone density and places the patient within normal limits of fracture risk. An additional bone density evaluation was performed 11/20/2015 on the left femur neck using a Hologic unit. The BMD average for the exam is 0.692 g/cm2. The T- score is -1.40 and the Z-score is 0.50. This matches the World Health Organization's criteria for osteopenia and places the patient at a medium risk for fracture. An additional bone density evaluation was performed 11/20/2015 on the left total femur area using a Hologic unit. The BMD average for the exam is 0.817 g/cm2. The T-score is -1.00 and the Z-score is 0.60. This matches the World Health Organization's criteria for normal bone density and places the patient within normal limits of fracture risk. IMPRESSION: OSTEOPENIA Patient is at medium risk for fracture. This exam was dictated and interpreted by [id number] for [facility]. Jean Potts M.D., cm/miguelangel:11/20/2015 15:45:15 School Business Manager: Pati COMER(Nehal)(M), [facility] 11/20/2015 NISSA PARIKH [place] Breast specimen surgery - [facility] SPECIMEN SURGERY SPECIMEN: 08/30/2015 CLINICAL: Breast Cancer. Correlation is made to exams dated: 08/29/2015 mammogram, 07/23/2015 mammogram - [facility], 07/04/2015 mammogram, 11/14/2013 mammogram, 11/01/2012 mammogram - [facility] and 10/28/2011 mammogram - [facility]. A specimen submitted for radiography demonstrates the distal portions of both wires and the S shaped biopsy clip. The ribbon clip is not within the specimen. Dr. Andre was notified. Additional tissue was removed in the operating room but was not sent for imaging. Final pathology results are as follows: ' 1. Medial margin, right breast:- ATYPICAL LOBULAR HYPERPLASIA WITH FOCAL LOBULAR CARCINOMA IN SITU. - Fibrocystic changes with florid ductal hyperplasia, intraductal papilloma (1 mm) and microcalcifications. - Organizing biopsy site identified. 2. Right breast, needle localization and partial mastectomy: - ATYPICAL LOBULAR HYPERPLASIA WITH FOCAL LOBULAR CARCINOMA IN SITU. - Fibrocystic changes with florid ductal hyperplasia. - Benign intramammary lymph node (3 mm). - Organizing biopsy site identified. ' Pathology results are concordant with imaging. IMPRESSION: SPECIMEN Return to annual mammographic screening is recommended. Koki Lorenzana M.D. ap/:09/10/2015 09:14:40 School Business Manager: Ivon Hess, [facility] This exam was dictated and interpreted by [id number] for [facility], SL 12. letter sent: Post Bx Results 08/30/2015 [facility] Digital Mammo DX Uni MA - DIG MERE MAMMO DX UNI MA/R UNILATERAL RIGHT DIGITAL DIAGNOSTIC MAMMOGRAM WITH CAD: 08/29/2015 CLINICAL: Breast Cancer. Current study was evaluated with a Computer Aided Detection (CAD) system. Comparison is made to exams dated: 08/01/2015 ultrasound biopsy and 08/29/2015 localization - [facility]. Post procedure mammogram demonstrates the two wires are in place with tips adjacent to the targeted lesions/biopsy clips. IMPRESSION: BENIGN Successful wire localization of two lesions in the right breast. Koki Lorenzana M.D. ap/:08/29/2015 15:37:03 School Business Manager: Anne Booker, [facility] This exam was dictated and interpreted by [id number] for [facility]. Mammogram BI-RADS: 2 Benign 08/29/2015 [facility] US Guided Needle Localization Uni MA - US GUIDED NEEDLE LOCALIZATION UNI MA/R MULTIPLE ULTRASOUND GUIDED WIRE LOCALIZATION RIGHT BREAST: 08/29/2015 CLINICAL: Massx2. PATIENT CONSENT: Informed consent was obtained for preoperative hookwire needle localization of the targeted lesion following a detailed discussion of the risk, alternatives, benefits and complications. A formal timeout was performed by the team prior to the procedure to verify the patient's identity and lesion site. Correlation is made to exam dated: 08/01/2015 ultrasound biopsy - [facility]. A wire localization using ultrasound guidance was performed for the 8 mm mass located in the right breast at 11 o'clock middle depth. This was described on the previous ultrasound and biopsy reports. The skin was prepped in the usual manner. Local anesthetic was administered to the access site. A skin anselmo was made in the breast. The localization was approached from the lateral aspect. A wire was inserted into the targeted area under ultrasound guidance. Post placement imaging demonstrates the tip rests in the targeted area adjacent to the S shaped biopsy clip. A wire localization using ultrasound guidance was performed for the 1 cm mass located in the right breast at 10 o'clock posterior depth. This was described on the previous ultrasound and biopsy reports. The skin was prepped in the usual manner. Local anesthetic was administered to the access site. The localization was approached from the lateral aspect. A wire was inserted into the targeted area under ultrasound guidance. Post placement imaging demonstrates the tip rests in the targeted area adjacent to the ribbon shaped biopsy clip. IMPRESSION: WIRE LOCALIZATION Wire localization for the 8 mm mass in the right breast at 11 o'clock middle depth was successful with no apparent post procedure complications. Wire localization for the 1 cm mass in the right breast at 10 o'clock posterior depth was successful with no apparent post procedure complications. Koki Lorenzana M.D. ap/:08/29/2015 15:35:30 School Business Manager: Stone Shield[place], [facility] This exam was dictated and interpreted by [id number] for [facility]. letter sent: Post Bx Results 08/29/2015 [facility] Breast biopsy uni US Guided w clip MA - BREAST BIOPSY UNI US GUIDED W CLIP MA/R MULTIPLE ULTRASOUND GUIDED BIOPSIES RIGHT BREAST WITH MARKING DEVICES INSERTED AND POST DIGITAL MAMMOGRAPHIC AND ULTRASOUND IMAGIN08/01/2015 CLINICAL: 2 indeterminate right breast masses, 11 o'clock and 10 o'clock. PATIENT CONSENT: Oral and written informed consent was obtained. Risks, benefits, and alternatives were discussed with the patient. Risks include but are not limited to pain, infection, bleeding, incomplete procedure, repeat procedure, pneumothorax, damage to surrounding tissues, and allergic reaction. The patient understands the plan and wishes to proceed. A time out was performed immediately prior to the procedure to confirm the patient's identity (name/date of ) and correct procedure site. Correlation is made to exams dated: 07/23/2015 ultrasound, 07/23/2015 mammogram - [facility], 07/04/2015 mammogram, 11/14/2013 mammogram, 11/01/2012 mammogram - [facility] 10/28/2011 mammogram - [facility]. An ultrasound guided biopsy using real-time ultrasound was performed for the concerning 1 cm wider than tall oval mass located in the right breast at 10 o'clock posterior depth 3 cm from the nipple. This was described on the previous ultrasound report. The skin was prepped in the usual manner. 5 ccs of 1% lidocaine was administered during the procedure. A skin anselmo was made in the breast. The abnormality was approached from the lateral aspect. A 14 gauge biopsy needle was placed adjacent to the abnormality through an introducer device under ultrasound guidance. Once the needle was documented to be in the correct location, three cores were obtained using an Achieve automated firing device. A Gel Yury UltraCor S shaped clip was inserted into the biopsy cavity. A skin adhesive and a sterile dressing were applied to the access site. Post procedure digital mammographic and ultrasound imaging demonstrates the clip at the targeted area and partial removal of the abnormality. The specimens were sent to the laboratory for pathological analysis. A second ultrasound guided biopsy using real-time ultrasound was performed for the concerning 8 mm wider than tall oval mass located in the right breast at 11 o'clock posterior depth 1 cm from the nipple. This was described on the previous ultrasound report. The skin was prepped in the usual manner. 5 ccs of 1% lidocaine was administered during the procedure. A skin anselmo was made in the breast. The abnormality was approached from the lateral aspect. A 12 gauge biopsy needle was placed adjacent to the abnormality under ultrasound guidance. Once the needle was documented to be in the correct location, three cores were obtained using the vacuum assisted Bard EnCor Enspire device. A Gel Yury UltraCor braided shaped clip was inserted into the biopsy cavity (1st braided clip placed did not deploy correctly as it was not present on the post procedure mammogram therefore a 2nd one was placed and successfully confirmed with post mammogram imaging). A skin adhesive and a sterile dressing were applied to the access site. Post procedure digital mammographic and ultrasound imaging demonstrates the clip at the targeted area and partial removal of the abnormality. The specimens were sent to the laboratory for pathological analysis. IMPRESSION: ULTRASOUND GUIDED BIOPSY HIGH RISK BENIGN Ultrasound guided biopsy of the 1 cm wider than tall mass in the right breast at 10 o'clock posterior depth 3 cm from the nipple was successful with no apparent post procedure complications. Pathology indicates high risk benign results - 'Atypical lobular hyperplasia; Columnar cell change, apocrine cysts, duct cysts, fibrosis and chronic inflammation'. Pathology results are concordant with imaging findings. A surgical consult and a surgical excision are recommended. Ultrasound guided biopsy of the 8 mm wider than tall mass in the right breast at 11 o'clock posterior depth 1 cm from the nipple was successful with no apparent post procedure complications. Pathology indicates high risk benign results - 'Atypical lobular hyperplasia; Dense fibrosis with focal usual ductal hyperplasia, columnar cell change and apocrine metaplasia'. Pathology results are concordant with imaging findings. A surgical consult and a surgical excision are recommended. A phone call was made to the physician's KIMBERLY Mccall, for Dr. Tuttle, of the above results at 1509 hrs 08/03/15. Savanna evans/:08/03/2015 15:13:21 School Business Manager: [place], [facility] This exam was dictated and interpreted by [id number] for [facility], 12. letter sent: Surgical Consult post Biopsy 08/01/2015 [facility] Complete Uni US - [facility] COMPLETE UNI US/R ULTRASOUND OF RIGHT BREAST AND RIGHT AXILLA: 07/23/2015 CLINICAL: Nodules abnormal mammogram, mammographic nodule/density. Comparison is made to exams dated: 07/23/2015 mammogram - [facility], 07/04/2015 mammogram, 11/14/2013 mammogram, 11/01/2012 mammogram - [facility], 10/28/2011 mammogram - [facility] and 08/07/2010 mammogram - [facility]. Color flow and real-time ultrasound of the right breast and axilla were performed. Morris scale images of the real-time examination were reviewed. All 4 quadrants, the retroareolar region and axilla are evaluated in this exam. There are various sized benign cysts with a circumscribed margin with internal echoes and posterior enhancement right breast at 8, 9 and 10 o'clock. There also is a benign calcification right breast at 2 o'clock that correlates with mammography. There is a 1 cm wider than tall oval mass with a lobulated margin in the right breast at 10 o'clock posterior depth 3 cm from the nipple. This oval mass is hypoechoic with posterior acoustic enhancement. This correlates with mammography findings. Color flow imaging demonstrates that there is vascularity present. There also is an 8 mm wider than tall oval mass with a lobulated margin in the right breast at 11 o'clock posterior depth 1 cm from the nipple. This oval mass is hypoechoic with posterior acoustic enhancement. This correlates with mammography findings. Color flow imaging demonstrates that there is no vascularity present. No abnormalities were seen sonographically in the right axilla. IMPRESSION: SUSPICIOUS OF MALIGNANCY - FOLLOW-UP RECOMMENDED The 1 cm wider than tall oval mass in the right breast at 10 o'clock posterior depth resembles a fibroadenoma and is at a low suspicion for malignancy. An ultrasound guided biopsy is recommended. The 8 mm wider than tall oval mass in the right breast at 11 o'clock posterior depth resembles a fibroadenoma and is at a low suspicion for malignancy. An ultrasound guided biopsy is recommended. A phone call was made to the physician's office and the results were reviewed with the patient. SUMMARY: The patient scheduled her procedure (2 area right breast ultrasound biopsy) prior to leaving the [facility]. Critical findings were called to the physician's nurse Nichole at 0930 hours on the day of the exam. Savanna batistat/:07/23/2015 09:41:02 School Business Manager: [place], [facility] This exam was dictated and interpreted by [id number] for [facility]. letter sent: Biopsy Ultrasound BI-RADS: 4a Suspicious abnormality - low suspicion for malignancy 07/23/2015 [facility] Digital Mammo DX Uni MA - DIGI MERE MAMMO DX UNI MA/R UNILATERAL RIGHT DIGITAL DIAGNOSTIC MAMMOGRAM: 07/23/2015 CLINICAL: Mammographic Abnormality. Comparison is made to exams dated: 07/04/2015 mammogram, 11/14/2013 mammogram, 11/01/2012 mammogram - [facility], 10/28/2011 mammogram - [facility], 08/07/2010 mammogram - [facility] and 08/02/2009 mammogram - [facility]. There are scattered fibroglandular densities in the right breast. There are benign calcifications in the right breast. There are multiple nodules in the right breast upper outer aspect middle depth. These correlate with the prior exam. No other significant masses or calcifications are seen in the breast. IMPRESSION: INCOMPLETE: NEEDS ADDITIONAL IMAGING EVALUATION The multiple nodules in the right breast are indeterminate. An ultrasound is recommended. The results were reviewed with the patient. SUMMARY: Ultrasound will be performed at this time; please see dedicated separate report. Savanna evans/ayannarad:07/23/2015 09:41:24 School Business Manager: Vee Loyd, [facility] This exam was dictated and interpreted by [id number] for [facility]. Mammogram BI-RADS: 0 Indeterminate 07/23/2015 [facility] Digital Mammo Screening Deshaun MA - DIGITAL MAMMO SCREENING DESHAUN MA BILATERAL DIGITAL SCREENING MAMMOGRAM WITH CAD: 07/04/2015 CLINICAL: Screening. Current study was evaluated with a Computer Aided Detection (CAD) system. Comparison is made to exams dated: 11/14/2013 mammogram, 11/01/2012 mammogram - [facility], 10/28/2011 mammogram - [facility], 08/07/2010 mammogram - [facility], 08/02/2009 mammogram - [facility] and 11/09/2007 mammogram - [facility]. There are scattered fibroglandular densities in both breasts. There is a possible 1.5 cm mass in the right breast at 11 o'clock middle depth 8 cm from the nipple. There also is a possible 0.7 cm round mass in the right breast at 9 o'clock anterior depth 6.7 cm from the nipple. No other significant masses, calcifications, or other findings are seen in either breast. IMPRESSION: INCOMPLETE: NEEDS ADDITIONAL IMAGING EVALUATION The possible 1.5 cm mass in the right breast at 11 o'clock middle depth is indeterminate. Additional views with possible ultrasound are recommended. The possible 0.7 cm round mass in the right breast at 9 o'clock anterior depth is indeterminate. Additional views with possible ultrasound are recommended. SUMMARY: The staff from [facility] with [facility] will contact the patient to schedule the additional studies. A supplemental report will be issued following interpretation of the additional studies. Jian almendarez/miguelangel:07/04/2015 12:32:16 School Business Manager: Sherrie COMER(Nehal)(William), [facility] This exam was dictated and interpreted by [id number] for [facility]. letter sent: Additional Imaging Mammogram BI-RADS: 0 Indeterminate 07/04/2015 [facility] [place] Consultation Notes No Data Provided for This Section Discharge Summaries No Data Provided for This Section History and Physicals No Data Provided for This Section Vital Signs Vital Sign Value Date Comments Source Systolic (mm Hg) 133 08/29/2015 [facility] Diastolic (mm Hg) 54 08/29/2015 [facility] Respitory Rate 18 08/29/2015 [facility] Systolic (mm Hg) 143 08/29/2015 [facility] Diastolic (mm Hg) 64 08/29/2015 [facility] Respitory Rate 18 08/29/2015 [facility] Systolic (mm Hg) 129 08/29/2015 [facility] Diastolic (mm Hg) 64 08/29/2015 [facility] Respitory Rate 11 08/29/2015 [facility] Heart Rate 75 08/22/2015 [facility] Temperature Oral (F) 97.9 F 08/22/2015 [facility] Height 157.48 cm 08/22/2015 [facility] BMI Calculated 34.49 08/22/2015 [facility] Weight 85.54 08/22/2015 [facility] Encounters Location Location Details Encounter Type Encounter Number Reason For Visit Attending Provider ADM Date DC Date Status Source [facility] [facility] [id number] Jarret Tuttle 11/14/2013 11/15/2013 [facility] Outpatient [facility] [place] [facility] [id number] Jarret Tuttle 07/04/2015 07/05/2015 [facility] Outpatient [id number] Jarret Tuttle 07/23/2015 07/24/[address] [facility] Outpatient [id number] Jarret Aguilaren 08/01/2015 08/02/[address] [facility] OBS Day Surgery [id number] Avila Andre 08/29/2015 08/29/2015 [facility] Outpatient [id number] AVILA ANDRE 08/29/2015 [facility] Outpatient [id number] AVILA ANDRE 09/06/2015 [facility] Outpatient [id number] AVILA ANDRE 09/06/2015 [facility] Outpatient Imaging [place] [facility] [id number] Marce Montano 11/20/2015 11/21/2015 [facility] Outpatient [id number] Marce ArnulfostefanMarito 04/07/2016 04/08/[address] [facility] Outpatient [id number] Marce ArnulfogeovannyMarcy 12/22/2016 12/23/[address] [facility] Outpatient [id number] Marce ArnulfostefanMarito 06/19/2017 06/20/[address] [facility] Outpatient [id number] Marce ArnulfostefanMarito 06/21/2018 06/22/[address] [facility] Outpatient [id number] Marce ArnulfogeovannyMarcy 12/28/2018 12/29/[address] [facility] Outpatient [id number] Marce ArredondostefanMarito 09/27/2019 09/28/2019 [facility] Procedures Procedure Code Date Perfomer Comments Source Partial mastectomy right 87396 001 08/29/2015 [facility] Knee replacement [id number] 03/30/2014 [facility] Hysterectomy [id number] [facility] Lower jaw operation [id number] [facility] [place],[facility] Lumpectomy of breast [id number] [facility] Assessment and Plan No Data Provided for This Section Plan of Care No Data Provided for This Section Social History Social History Date Source Social History TypeResponse Alcohol Current, Type Wine. Frequency: 1-2 times per month. Substance Abuse Use: None. Smoking Status Never smoker; Exposure to Tobacco Smoke None; Cigarette Smoking Last 365 Days No; Reg Smoking Cessation Counseling No entered on: 09/06/15 08/14/2015 [facility] Social History TypeResponse Substance Abuse Use: None. Alcohol Current, Type Wine. Frequency: 1-2 times per month. Smoking Status Never smoker; Exposure to Tobacco Smoke None; Cigarette Smoking Last 365 Days No; Reg Smoking Cessation Counseling No 08/14/2015 [facility] Family History No Data Provided for This Section Advance Directives No Data Provided for This Section Functional Status No Data Provided for This Section
--- OUTSIDE RECORDS SUMMARY | 2019-11-02 12:19 | XMS REPORT | Summary of Care ---
Author Author [facility] Organization [facility] Address Unknown Phone Unavailable Encounter HQ Encntr_alidiana(FIN) [id number] Date(s): 07/23/15 - 07/23/15 [facility] [address] [place] [address]- Discharge Disposition: Home Attending Physician: Jarret Tuttle MD Referring Physician: Jarret uTttle MD Vital Signs No data available for this section Problem List No data available for this section Allergies, Adverse Reactions, Alerts No data available for this section Medications No data available for this section Results No data available for this section Immunizations No data available for this section Procedures No data available for this section Social History No data available for this section Assessment and Plan No data available for this section
--- OUTSIDE RECORDS SUMMARY | 2019-11-02 12:19 | XMS REPORT | Summary of Care ---
Author Author [facility] Outpatient Imaging [facility] Outpatient Imaging [facility] Address Unknown Phone Unavailable Encounter HQ Encntr_alias(FIN) [id number] Date(s): 07/04/15 - 07/04/15 [facility] Outpatient Imaging [address] [phone] Discharge Disposition: Home Attending Physician: Jarret Tuttle MD Vital Signs No data available for [...]
--- OUTSIDE RECORDS SUMMARY | 2019-11-02 12:19 | XMS REPORT | Summary of Care ---
Author Author [facility] Organization [facility] Address Unknown Phone Unavailable Encounter TERRANCE Emanuel(KEANU) [id number] Date(s): 12/22/16 - 12/22/16 [facility] [address] [place] [address]- [phone] Discharge Disposition: Home or Self Care Attending [...]
--- OUTSIDE RECORDS SUMMARY | 2019-11-02 12:19 | XMS REPORT | Summary of Care ---
Author Author [facility] Organization [facility] Address Unknown Phone Unavailable Encounter TERRANCE Emanuel(KEANU) [id number] Date(s): 06/21/18 - 06/21/18 [facility] [address] [place] [address]- Discharge Disposition: Home or Self Care Attending [...] Completed Social History Social History Type Response Substance Abuse Use: None. Alcohol Current, Type Wine. Freque ncy: 1-2 times per month. Smoking Status Never smoker; Exposure to T obacco Smoke None; Cigarette Smoking Last 365 Days No; Reg Smoking Cessation Counseli ng No entered on: 09/06/15 Assessment and Plan No data available for this section
--- OUTSIDE RECORDS SUMMARY | 2019-11-02 12:19 | XMS REPORT | Summary of Care ---
Author Organization Unknown Address Unknown Phone Unavailable Encounter HQ Brintr_sonadiana([facility]) [id number] Date(s): 11/14/13 - 11/14/13 [facility] Outpatient Imaging [place] [address] [place], [place] [address] Discharge Disposition: Home Physician Attending: Jarret Tuttle MD Reason for Visit V76.12 - SCREEN MAMMOGRA Problem List No data available for this section Allergies, Adverse Reactions, Alerts No data available for this section Medications No data available for this section Medications Administered During Your Visit No data available for this section Immunizations No data available for this section
--- OUTSIDE RECORDS SUMMARY | 2019-11-02 12:19 | XMS REPORT | Summary of Care ---
Author Author [facility] Organization [facility] Address Unknown Phone Unavailable Encounter HQ Adelfo(FIN) [id number] Date(s): 06/19/17 - 06/19/17 [facility] [address] [place] [address]- Encounter Diagnosis Encounter for screening mammogram for malignant neoplasm of breast (Final) - 06/25/17 Discharge Disposition: Home or Self Care Attending [...]
--- OUTSIDE RECORDS SUMMARY | 2019-11-02 12:19 | XMS REPORT | Summary of Care ---
Author Author [facility] [employer] Organization [facility] Address Unknown Phone Unavailable Care Team Providers Care Mogul Operator Name Role Phone Kelly Griffin PCP Encounter HQ Adelfo(FIN) [id number] Date(s): 12/28/18 - 12/28/18 [facility] [address] [place] [address]- Discharge Disposition: Home or Self Care Attending [...]
--- OUTSIDE RECORDS SUMMARY | 2019-11-02 12:19 | XMS REPORT | Summary of Care ---
Author Author [facility] Organization [facility] Outpatient Imaging [facility] Address Unknown Phone Unavailable Encounter TERRANCE Emanuel(FIN) [id number] Date(s): 11/20/15 - 11/20/15 [facility] Outpatient Imaging [address] [address]- [phone] Discharge Disposition: Home or Self Care Attending Physician: Marce Montano DO Vital Signs No [...]
--- OUTSIDE RECORDS SUMMARY | 2019-11-02 12:19 | XMS REPORT | Summary of Care ---
Author Author [facility] Organization [facility] Address Unknown Phone Unavailable Encounter HQ Encntr_polly(FIN) [id number] Date(s): 08/01/15 - 08/01/15 [facility] [address] [place] [address]- Discharge Disposition: Home Attending Physician: Jarret Tuttle MD Referring Physician: Jarret Tuttle MD Vital Signs No [...]
[2019-11-02 12:50] VITALS: BP 127/66
[2019-11-02] MEDS ORDERED: SEVOFLURANE INHAL SOLN 250 ML PEN BTL ONE (14:02)
[2019-11-02] MEDS ORDERED: DEXAMETHASONE SOD PHOS INJ 4 MG/ML VIAL ONE (14:02)
[2019-11-02] MEDS ORDERED: NEOSTIGMINE 1 MG/ML 10ML VIAL ONE (14:02)
[2019-11-02] MEDS ORDERED: LIDOCAINE HCL 2% LOCAL INJ 5 ML SDV VIAL INJ ONE (14:02)
[2019-11-02] MEDS ORDERED: LIDOCAINE HCL 2% JELLY 5 ML TUBE ONE (14:02)
[2019-11-02] MEDS ORDERED: ROCURONIUM BROMIDE 10 MG/ML 5ML VIAL IV ONE (14:02)
[2019-11-02] MEDS ORDERED: PROPOFOL IV EMULSION 10 MG/ML 20 ML VIAL ONE (14:02)
[2019-11-02] MEDS ORDERED: GLYCOPYRROLATE INJ 0.2 MG/ML VIAL ONE (14:02)
[2019-11-02] MEDS ORDERED: KETOROLAC TROMETHAMINE 30 MG/ML VIAL ONE (14:02)
[2019-11-02 14:07] VITALS: BP 127/66
[2019-11-02] MEDS: D5.45%NS/KCL 20MEQ 1,000 ML IV SCH (14:33)
[2019-11-02 16:33] VITALS: BP 129/62
[2019-11-02] MEDS: PIPERACILLIN/TAZO 2.25 GM 50 ML IV SCH (16:40)
--- NOTE | 2019-11-02 17:32 | NUR ---
called and left message for Dr. Damico to get home medications restarted. waiting for callback
[2019-11-02] MEDS: DOCUSATE SODIUM 100 MG CAP PO SCH (17:57)
[2019-11-02 20:00] VITALS: BP 135/67
[2019-11-02 21:00] VITALS: BP 135/67
[2019-11-02] MEDS ORDERED: CLONIDINE HCL 0.1 MG TAB PO SCH (21:00)
[2019-11-02] MEDS ORDERED: AMLODIPINE BESYLATE 10 MG TAB PO SCH (21:00)
[2019-11-02] MEDS ORDERED: SIMVASTATIN 20 MG TAB PO SCH (21:00)
--- NOTE | 2019-11-02 22:00 | NUR ---
Cartagena care given.clear colored urine draining.assessment done.no resp.distress.no pain voiced.uses spirometer.scd and alfred hose in place.on practice administrator morphine.vag.pack in place.bed locked and in lowest position.phone and call light within reach.instructed to call for assistance as needed.
[2019-11-03] VITALS: BP 115/54
[2019-11-03] MEDS: PIPERACILLIN/TAZO 2.25 GM 50 ML IV SCH ×2 (00:15→07:51)
[2019-11-03] MEDS: D5.45%NS/KCL 20MEQ 1,000 ML IV SCH (00:54)
[2019-11-03 04:00] VITALS: BP 121/65
[2019-11-03 05:30] LABS: BASOPHILS % 0.2 % (0.0-1.0); HEMATOCRIT 32.5 % (34.2-44.1); HEMOGLOBIN 10.5 g/dL (12.0-16.0); LYMPHOCYTES # (AUTO) 1.9 (1.0-3.2); LYMPHOCYTES % 10.3 % (18.0-39.1); MEAN CORPUSCULAR HEMOGLOBIN 27.9 pg (28-32); MEAN CORPUSCULAR HGB CONC 32.3 g/dL (31-35); MEAN CORPUSCULAR VOLUME 86.4 fL (81-99); MONOCYTES # (AUTO) 1.6 (0.2-0.8); MONOCYTES % 8.7 % (4.4-11.3); NEUTROPHILS # (AUTO) 14.9 (2.1-6.9); PLATELET COUNT 234 x10e3/uL (140-360); RED BLOOD COUNT 3.76 x10e6/uL (3.6-5.1); RED CELL DISTRIBUTION WIDTH 15.2 % (11.7-14.4)
[2019-11-03 05:45] LABS: ANION GAP 12.1 mmol/L (8-16); BLOOD UREA NITROGEN 11 mg/dL (7-26); BUN/CREATININE RATIO 13 (6-25); CALCIUM 8.6 mg/dL (8.4-10.2); CARBON DIOXIDE 20 mmol/L (22-29); CHLORIDE 113 mmol/L (98-107); CREATININE, SERUM 0.83 mg/dL (0.57-1.11); EST GLOMERULAR FILTRATION RATE > 60 ML/MIN (60-); GLUCOSE 120 mg/dL (74-118); POTASSIUM 4.1 mmol/L (3.5-5.1); SODIUM 141 mmol/L (136-145)
[2019-11-03] MEDS ORDERED: LEVOTHYROXINE SODIUM 88 MCG TAB PO SCH (06:00)
--- NOTE | 2019-11-03 07:10 | NUR ---
BED SIDE SHIFT REPORT GIVEN TO ONCOMING RN.STABLE CONDITION.
[2019-11-03 07:34] VITALS: BP 132/61
[2019-11-03] MEDS: DOCUSATE SODIUM 100 MG CAP PO SCH (07:51)
[2019-11-03 07:55] VITALS: BP 132/61
[2019-11-03] MEDS ORDERED: MORPHINE SULFATE INJ 4 MG/ML INJ 1ML IV PRN (08:30)
[2019-11-03] MEDS ORDERED: HYDROCODONE/APAP 5MG-325MG TAB PO PRN (08:30)
--- NOTE | 2019-11-03 08:59 | NUR ---
SPOKE WITH PT ABOUT HOME HEALTH ORDER, SHE STATES SHE HAS WORKED WITH BEFORE BUT DOESNT REMEMBER NAME, GAVE CHOICES OF [facility], [facility] AND [facility], SHE SIGNED CHOICE WITH [facility], WILL FAX ORDER AND REQUEST.
[2019-11-03] MEDS ORDERED: ANASTROZOLE 1 MG TAB PO SCH (09:00)
--- NOTE | 2019-11-03 09:18 | NUR ---
EDUCATED ABOUT [facility]OS[facility]O, SIGNED, FILED IN CHART, WITH COPY LEFT WITH FAMILY AT BEDSIDE.
--- NOTE | 2019-11-03 12:22 | History and Physical ---
CONSULTING PHYSICIAN: Demetri Coy MD The patient is status post cystocele repair with graft sling, status post cystoscopy and . HISTORY: This is a 74-year-old female with cystocele and recurrent urinary tract infection associated with urinary retention and urinary incontinence. The patient is now status post cystocele repair with sling. She is stable. At baseline, the patient has hypertension. Urinary urgency, intermittent incontinence, urinary retention and recurrent urinary tract infection, which is the reason for the patient to have this surgical intervention. She has a grade 4 cystocele and grade 1 rectocele by pelvic examination by Dr. Demetri Coy back in September 29, 2019. Baseline medical history including hypertension and dyslipidemia, history of atypical cell breast lesion. She is on Arimidex. The patient is otherwise stable now postoperatively. She is on EMT I/99 pump. Cartagena catheter in place. PAST MEDICAL HISTORY: Hypertension, dyslipidemia, hypothyroidism, mild major depression, history of cataract, osteoarthritis, chronic low back pain, breast cancer on Arimidex, total abdominal hysterectomy with bilateral salpingo oophorectomy. Urinary retention, recurrent urinary tract infection, and cystocele. SOCIAL HISTORY: The patient does not smoke or use alcohol. No regular drug use. She lives with her , very well family support. ALLERGIES: TO CODEINE, HYDROXYCHLOROQUINE, LEVAQUIN, NITROFURANTOIN. HOME MEDICATION: Norvasc 10 mg at bedtime, Arimidex 1 mg daily, calcium, vitamin D supplement, clonidine 0.1 mg at bedtime, folic acid, garlic supplement, levothyroxine 88 mcg daily, lisinopril 20 mg b.i.d., simvastatin 20 mg daily. PHYSICAL EXAMINATION: VITAL SIGNS: Temperature is 98, blood pressure 115/54, pulse rate 73, respirations 18. GENERAL: The patient is not in acute distress. She is awake. HEENT: Normocephalic and atraumatic. Sclerae anicteric. NECK: Supple grossly. PULMONARY: Clear. CARDIOVASCULAR: Regular rate and rhythm. ABDOMEN: Soft, status post cystocele repair. EXTREMITIES: No cyanosis or edema. NEUROLOGIC: No gross focal deficit. LABORATORY DATA: WBC is 18.5, hemoglobin 10.5, hematocrit 32.5, platelets is 234,000. Chemistry; sodium 141, potassium 4.1, chloride 113, bicarb 20, BUN 11, creatinine 0.8, and glucose is 120. IMPRESSION: 1. Reactive leukocytosis. 2. Status post cystocele repair, postop day #1. 3. Baseline chronic medical problems are stable. PLAN: Adjust the patient's medication. Monitor the patient WBC. Continue with postoperative antibiotics. IV fluids. We will discontinue the EMT I/99. The patient is not having much pain. Oral pain medication. Increase activity. Cartagena care. We will continue to monitor the patient postoperative care. MD FIDELINA Gan/ISMAELL /[id number]
--- NOTE | 2019-11-09 00:11 | Operative Report ---
DATE OF PROCEDURE: 11/02/2019 SURGEON: Demetri Coy MD PREOPERATIVE DIAGNOSES: 1. Stress incontinence. 2. Large cystocele. 3. Urinary tract infections. POSTOPERATIVE DIAGNOSES: 1. Stress incontinence. 2. Large cystocele. 3. Urinary tract infections. OPERATIONS PERFORMED: 1. Large cystocele repair. 2. Utilization of graft in cystocele repair. 3. Pubovaginal sling utilizing homograft. 4. Cystourethroscopy with bilateral ureteral catheterization and retrograde ureteropyelography (separate procedure performed for the urinary tract infections). 5. Interpretation of retrograde ureteropyelography, no radiologist present. LIBRARY MONITOR: Jerica Coy MD ANESTHESIA: General. COMPLICATIONS: None. CLINICAL SUMMARY: Patricia Wooten is a 74-year-old woman with severe cystocele. The patient is believed to be impending stress incontinence as soon as the cystocele was reduced and therefore, she needs a sling. The patient also has a stone in the right kidney. She is aware of the risks of bleeding, infection, injury to adjacent structures, additional incontinence, urinary retention, need for procedures, and elected to proceed. OPERATIVE PROCEDURE IN DETAIL: Informed consent was verified. Patricia Wooten was properly identified, taken to the operating room, placed on the operating table in supine position. Anesthesia was uneventfully begun. The patient was then carefully and gently repositioned in dorsal lithotomy position. All pressure points were padded. Her abdomen, genitalia, and perineum were shaved, prepared, and draped in the usual sterile fashion. The labial stay sutures were placed. Examination revealed the patient's cystocele was really grade 4, not a grade 3 under anesthesia. Marcaine with epinephrine was utilized to infiltrate submucosally along the anterior vaginal wall. A midline incision was made. Bilateral vaginal wall flaps were developed. We pierced the endopelvic fascia bilaterally taking care to stay as laterally as possible to avoid injury to the periurethral neurovascular complexes. We then performed a plicating type of cystocele repair by approximating the cut edges of the endopelvic fascia from the bladder neck to the cephalad most extent of the vaginal dissection. Heavy Vicryl sutures were utilized to accomplish that. This resulted in complete reduction of the patient's severe cystocele. Cartagena catheter was placed and the bladder was drained. A piece of fascia dot was cut into shape, was hydrated in antibiotic irrigant. Heavy PDS suture was then placed in a helical fashion through each end of the graft. The [employer] needle system was then utilized to hug the posterior surface of the pubis and pierced through the abdominal wall. Following this piercing, the needle was utilized to drag a suture pair of PDS suture. This was performed first on the left side than on the right side. We then utilized chromic suture to secure the graft to proper position within the patient's vaginal dissection in order to fully support the cystocele repair. We then extended the graft to the distal urethra and secured in position, thus completing a pubovaginal sling. The [employer] lateral needle passer was then utilized to take one strand of each PDS suture and tunneled it subcutaneously, suprapubically to join its contralateral counterpart. We then tied these sutures down to the level of the patient's skin and allowed the knots to fall deep within the suprapubic fat pad, thus ensuring a non-lifting and non-constricting sling. Copious irrigation was performed. The abdominal stab wounds were infiltrated with Marcaine for postop pain control. They were approximated with interrupted subcuticular Monocryl. We then minimally trimmed the vaginal wall and approximated the vaginal incision with a heavy Vicryl suture in running fashion. Cartagena catheter was withdrawn. Cystoscopy was performed. Panendoscopy of the bladder revealed no suspicious mucosal lesions, no tumors, no stones, and no diverticula. There was a bulge at the trigone due to the cystocele repair that was pretty extensive. No lesions were identified. Ureteral catheter was used to cannulate each ureter and retrograde ureteropyelograms were performed. Interpretation of retrograde ureteropyelography contrast was instilled in retrograde fashion bilaterally. There were no tumors and there were no suspicious lesions. In the right kidney, there was a long infundibulum in the mid calyx. The exhibited filling defect corresponds to the stone noted on CT. The stone noted on CT had very little overlying parenchyma, but it appeared that it was in the collecting system on retrograde pyelograms and it would be amenable to extracorporeal shockwave lithotripsy. Unobstructed drainage was observed fluoroscopically. The cystoscope was withdrawn. Cartagena catheter was placed. Vaginal packing with antibiotic ointment was then placed. The labial stay sutures were removed and the patient was uneventfully reversed from anesthesia and taken to recovery room in stable condition. There were no complications of the procedure. The patient tolerated the procedure well. Sponge and needle counts were correct x2 at the end of the case. Estimated blood loss was 100 mL. PLAN: Plans will be to allow the patient to recover from this procedure and then plan on returning her to the operating room for an ESWL of the right kidney. MD KRISTYN Braga/JERE /[id number]
== END 2019-11-03 10:43 | disposition home health service (06) ==
LOC: OR 05:42 → PACU V 11:19 → INTOOBSV 11:19 → MED/SURG 13:30
PROVIDERS: ADMIT Internal Medicine; ATTEND Internal Medicine
DX: N81.10 Cystocele, unspecified (principal); N81.6 Rectocele; N39.0 Urinary tract infection, site not specified; R80.9 Proteinuria, unspecified; N18.9 Chronic kidney disease, unspecified; E66.9 Obesity, unspecified; Z68.33 Body mass index [BMI] 33.0-33.9, adult; R39.14 Feeling of incomplete bladder emptying; R31.29 Other microscopic hematuria; Z84.1 Family history of disorders of kidney and ureter; N81.89 Other female genital prolapse; N36.41 Hypermobility of urethra; N20.0 Calculus of kidney; E03.9 Hypothyroidism, unspecified; N39.3 Stress incontinence (female) (male); I12.9 Hypertensive chronic kidney disease with stage 1 through stage 4 chronic kidney disease, or unspecified chronic kidney disease; Z88.3 Allergy status to other anti-infective agents; Z88.5 Allergy status to narcotic agent; Z88.8 Allergy status to other drugs, medicaments and biological substances; E78.5 Hyperlipidemia, unspecified; F32.9 Major depressive disorder, single episode, unspecified; Z85.3 Personal history of malignant neoplasm of breast
CPT/HCPCS: 36415 ×3; 57240; 57267; 57288; 71046; 74420; 80048 ×2; 85025 ×2; 93005; C1752; C1758; G0378 ×2; J1100; J1580; J1885; J2001 ×2; J2175; J2270; J2405; J2543 ×3; J2704; J2710; J3010; Q9967; U0002

== ENCOUNTER → 2020-01-02 | Outpatient (CLI) | payer MEDICARE, OTHER | LOC: RAD 08:13 | PROVIDERS: ATTEND Urology | DX: N20.0 Calculus of kidney (principal) | CPT/HCPCS: 74018 ==

== ENCOUNTER → 2020-01-13 | Day surgery (SDC) | payer MEDICARE, OTHER ==
[2020-01-10 11:30] LABS: BASOPHILS # (AUTO) 0.1 (0.0-0.1); BASOPHILS % 0.6 % (0.0-1.0); EOSINOPHILS # (AUTO) 0.1 (0.0-0.4); EOSINOPHILS % 0.8 % (0.0-6.0); HEMATOCRIT 38.1 % (34.2-44.1); LYMPHOCYTES # (AUTO) 3.3 (1.0-3.2); LYMPHOCYTES % 29.6 % (18.0-39.1); MEAN CORPUSCULAR HEMOGLOBIN 27.5 pg (28-32); MEAN CORPUSCULAR HGB CONC 31.5 g/dL (31-35); MEAN CORPUSCULAR VOLUME 87.4 fL (81-99); MONOCYTES % 8.9 % (4.4-11.3); NEUTROPHILS # (AUTO) 6.6 (2.1-6.9); NEUTROPHILS % 59.6 % (38.7-80.0); PLATELET COUNT 242 x10e3/uL (140-360); RED BLOOD COUNT 4.36 x10e6/uL (3.6-5.1)
[2020-01-10 12:04] LABS: ANION GAP 14.2 mmol/L (8-16); CALCIUM 9.6 mg/dL (8.4-10.2); CREATININE, SERUM 0.93 mg/dL (0.57-1.11); POTASSIUM 4.2 mmol/L (3.5-5.1)
[~2020-01-13] MED LIST changes: +B&O 60MG R/S 60 MG SUPP PR ONE; +CEFTRIAXONE SOD 1 GM/NS 50 ML 50 ML IV ONE; +DEXAMETHASONE SOD PHOS INJ 4 MG/ML VIAL ONE; +FENTANYL CITRATE/PF 100MCG/2 ML INJ ONE; +IOPAMIDOL 300MG/ML 50ML INFUS..BTL IV ONE; +LIDOCAINE HCL 2% LOCAL INJ 5 ML SDV VIAL INJ ONE; +ONDANSETRON HCL INJ 2MG/ML 2ML 2 MG/ML VIAL ONE; +PROPOFOL IV EMULSION 10 MG/ML 20 ML VIAL ONE; +SEVOFLURANE INHAL SOLN 250 ML PEN BTL ONE
[2020-01-13 08:45] VITALS: BP 157/72
--- NOTE | 2020-01-14 01:27 | Operative Report ---
DATE OF PROCEDURE: 01/13/2020 SURGEON: Demetri Coy MD PREOPERATIVE DIAGNOSIS: Right nephrolithiasis. POSTOPERATIVE DIAGNOSIS: Right nephrolithiasis . OPERATION PERFORMED: 1. Staged right-sided extracorporeal shock wave lithotripsy (separate procedure performed for the right stone and that related although to the patient's previous pelvic reconstructive surgery). 2. Supervision of fluoroscopy, no radiologist present. ANESTHESIA: General. COMPLICATIONS: None. CLINICAL SUMMARY: Patricia Wooten is a 74-year-old woman, who recently underwent pelvic reconstruction surgery. The patient has a known stone. Retrograde pyelograms performed at her last procedure. It seemed that this calcification actually communicate to the upper tract collecting system and that the parenchyma overlying is rather attenuated is noted on CT. The patient's stone was localized with biplanar fluoroscopy. A total of 3000 shocks were delivered with excellent fragmentation. The patient was uneventfully reversed from anesthesia and taken to recovery room in stable condition. There were no complications to the procedure. She tolerated the procedure well. Plans will be to have the patient follow up in the office and of course on long-term basis. Demetri Coy MD OH/MODL /[id number]
== END | disposition home or self-care (01) ==
LOC: OR 05:17
PROVIDERS: ATTEND Urology
DX: N20.0 Calculus of kidney (principal); Z98.890 Other specified postprocedural states; C50.919 Malignant neoplasm of unspecified site of unspecified female breast; I10 Essential (primary) hypertension; M19.90 Unspecified osteoarthritis, unspecified site; F32.9 Major depressive disorder, single episode, unspecified; Z88.6 Allergy status to analgesic agent; Z88.1 Allergy status to other antibiotic agents; Z88.8 Allergy status to other drugs, medicaments and biological substances; Z01.812 Encounter for preprocedural laboratory examination; Z11.59 Encounter for screening for other viral diseases
CPT/HCPCS: 36415; 50590; 80048; 83970; 84550; 85025; J0696; J1100; J2001; J2405; J2704; J3010; U0002

== ENCOUNTER → 2020-04-10 | Outpatient (CLI) | payer MEDICARE, OTHER ==
[~2020-04-10] MED LIST changes: -B&O 60MG R/S 60 MG SUPP PR ONE; -CEFTRIAXONE SOD 1 GM/NS 50 ML 50 ML IV ONE; -DEXAMETHASONE SOD PHOS INJ 4 MG/ML VIAL ONE; -FENTANYL CITRATE/PF 100MCG/2 ML INJ ONE; -IOPAMIDOL 300MG/ML 50ML INFUS..BTL IV ONE; -LIDOCAINE HCL 2% LOCAL INJ 5 ML SDV VIAL INJ ONE; -ONDANSETRON HCL INJ 2MG/ML 2ML 2 MG/ML VIAL ONE; -PROPOFOL IV EMULSION 10 MG/ML 20 ML VIAL ONE; -SEVOFLURANE INHAL SOLN 250 ML PEN BTL ONE
== END ==
LOC: RAD 09:02
PROVIDERS: ATTEND Urology
DX: N20.0 Calculus of kidney (principal)

== ENCOUNTER → 2020-12-26 | Outpatient (CLI) | payer MEDICARE, OTHER | LOC: RAD 07:40 | PROVIDERS: ATTEND Urology | DX: N20.0 Calculus of kidney (principal) | CPT/HCPCS: 74018 ==

== ENCOUNTER → 2021-04-12 | Day surgery (SDC) | payer MEDICARE, OTHER ==
[2021-04-09 11:55] LABS: BASOPHILS # (AUTO) 0.1 (0.0-0.1); BASOPHILS % 0.6 % (0.0-1.0); EOSINOPHILS # (AUTO) 0.1 (0.0-0.4); EOSINOPHILS % 0.8 % (0.0-6.0); HEMATOCRIT 37.9 % (34.2-44.1); LYMPHOCYTES # (AUTO) 2.6 (1.0-3.2); LYMPHOCYTES % 24.3 % (18.0-39.1); MEAN CORPUSCULAR HEMOGLOBIN 28.3 pg (28-32); MEAN CORPUSCULAR HGB CONC 31.7 g/dL (31-35); MEAN CORPUSCULAR VOLUME 89.4 fL (81-99); MONOCYTES # (AUTO) 0.7 (0.2-0.8); NEUTROPHILS # (AUTO) 7.1 (2.1-6.9); NEUTROPHILS % 66.6 % (38.7-80.0); PLATELET COUNT 280 x10e3/uL (140-360); RED BLOOD COUNT 4.24 x10e6/uL (3.6-5.1); RED CELL DISTRIBUTION WIDTH 15.4 % (11.7-14.4)
[2021-04-09 12:18] LABS: ANION GAP 11.8 mmol/L (8-16); CALCIUM 10.2 mg/dL (8.4-10.2); CREATININE, SERUM 1.18 mg/dL (0.57-1.11); POTASSIUM 3.8 mmol/L (3.5-5.1)
[~2021-04-12] MED LIST changes: +AUGMENTIN 875-1 EACH PO; +BELLADONNA/OPIUM 30 MG SUPP RC ONE; +CEFTRIAXONE 1 GM VIAL ONE; +DEXAMETHASONE SOD PHOS INJ 4 MG/ML SDV ONE; +FENTANYL CITRATE/PF 100MCG/2 ML INJ ONE; +HYDROCHLOROTHIA25 MG PO; +IOPAMIDOL 300MG/ML 50ML INFUS..BTL IV ONE; +LIDOCAINE HCL 2% LOCAL INJ 5 ML SDV VIAL INJ ONE; +ONDANSETRON HCL INJ 2MG/ML 2ML 2 MG/ML VIAL ONE; +POVIDONE IODINE 0.05% 0.05 % ML PO ONE; +PROPOFOL IV EMULSION 10 MG/ML 20 ML VIAL ONE; +SEVOFLURANE INHAL SOLN 250 ML PEN BTL ONE; +SODIUM CHLORIDE 0.9% 50ML 50 ML ONE
[2021-04-12 09:45] VITALS: BP 109/78
== END | disposition home or self-care (01) ==
LOC: OR 06:48
PROVIDERS: ATTEND Urology
DX: N20.0 Calculus of kidney (principal); N39.0 Urinary tract infection, site not specified; N81.10 Cystocele, unspecified; N81.6 Rectocele; N95.2 Postmenopausal atrophic vaginitis; I12.9 Hypertensive chronic kidney disease with stage 1 through stage 4 chronic kidney disease, or unspecified chronic kidney disease; N18.9 Chronic kidney disease, unspecified; E03.9 Hypothyroidism, unspecified; E66.9 Obesity, unspecified; K21.9 Gastro-esophageal reflux disease without esophagitis; Z88.6 Allergy status to analgesic agent; Z88.1 Allergy status to other antibiotic agents; Z88.8 Allergy status to other drugs, medicaments and biological substances; Z01.810 Encounter for preprocedural cardiovascular examination; Z01.812 Encounter for preprocedural laboratory examination; Z01.818 Encounter for other preprocedural examination; Z20.822 Contact with and (suspected) exposure to COVID-19; Z79.899 Other long term (current) drug therapy; Z68.34 Body mass index [BMI] 34.0-34.9, adult
CPT/HCPCS: 36415; 50590; 71046; 74018; 80048; 84550; 85025; 93005; C1758; J0696; J1100; J2001; J2405; J2704; J3010; Q9967; U0002

== ENCOUNTER → 2021-09-23 | Outpatient (CLI) | payer MEDICARE, OTHER ==
[~2021-09-23] MED LIST changes: -BELLADONNA/OPIUM 30 MG SUPP RC ONE; -CEFTRIAXONE 1 GM VIAL ONE; -DEXAMETHASONE SOD PHOS INJ 4 MG/ML SDV ONE; -FENTANYL CITRATE/PF 100MCG/2 ML INJ ONE; -IOPAMIDOL 300MG/ML 50ML INFUS..BTL IV ONE; -LIDOCAINE HCL 2% LOCAL INJ 5 ML SDV VIAL INJ ONE; -ONDANSETRON HCL INJ 2MG/ML 2ML 2 MG/ML VIAL ONE; -POVIDONE IODINE 0.05% 0.05 % ML PO ONE; -PROPOFOL IV EMULSION 10 MG/ML 20 ML VIAL ONE; -SEVOFLURANE INHAL SOLN 250 ML PEN BTL ONE; -SODIUM CHLORIDE 0.9% 50ML 50 ML ONE
== END ==
LOC: RAD 08:16
PROVIDERS: ATTEND Urology
DX: N20.0 Calculus of kidney (principal)
CPT/HCPCS: 74018

== ENCOUNTER → 2022-04-14 | Outpatient (CLI) | payer MEDICARE, OTHER | LOC: CT 07:35 | PROVIDERS: ATTEND Urology | DX: N20.0 Calculus of kidney (principal) | CPT/HCPCS: 74176 ==

== ENCOUNTER → 2024-02-16 | Outpatient (REF) | payer MEDICARE, OTHER | LOC: CT 13:10 | PROVIDERS: ATTEND Family Medicine | DX: J01.10 Acute frontal sinusitis, unspecified (principal) | CPT/HCPCS: 70486 ==